=== PATIENT | female | born 1935 | race Caucasian/White ===

== ENCOUNTER → 2018-07-02 | Outpatient (REF) | payer MEDICARE | LOC: M SFHCLERA 17:24 | DX: R10.30 Lower abdominal pain, unspecified (principal) | CPT/HCPCS: 87186 ==

== ENCOUNTER → 2018-11-28 | Outpatient (REF) | payer MEDICARE ==
[~2018-11-28] MED LIST: ACET650T3 PO; ASPI81CH PO; BIMA01SOL OU; CALC600T60 PO; DRIS50003 PO; FOSA70TA PO; LISI10TA2 PO; LISI20TA PO; LOVA20TA2 PO; LUTE10TA PO; RANTIDINE PO; TIMO25OPD OD; VITA1CAP2 PO
== END ==
LOC: M SFHCLERA 17:28
PROVIDERS: ATTEND Physician Assistant
DX: N30.01 Acute cystitis with hematuria (principal)
CPT/HCPCS: 81002; 87088; 87186; G0463

== ENCOUNTER → 2020-01-30 | Outpatient (CLI) | payer MEDICARE ==
[~2020-01-30] MED LIST changes: -ASPI81CH PO; +ASPI81CH49 PO; +BAYE325T12 PO; +DORZ2SOL5 OU; +GABA-1171 PO; +LISI10TA15 PO; -LISI10TA2 PO; -LISI20TA PO; +LISI20TA19 PO; +TIMO0.2525 OD; -TIMO25OPD OD; +VITA-183 PO; -VITA1CAP2 PO; +XALA0.007 OU
== END ==
LOC: M LABSMTC 09:05
PROVIDERS: ATTEND Anesthesiology
DX: Z01.818 Encounter for other preprocedural examination (principal); Z11.59 Encounter for screening for other viral diseases

== ENCOUNTER 2020-02-02 08:53 | Day surgery (SDC) | payer MEDICARE ==
[~2020-02-02] VITALS: Ht 157.5 cm; Wt 47.4 kg
[~2020-02-02 08:53] MED LIST changes: +LR 1,000 ML IV ONE
[2020-02-02] MEDS ORDERED: propofoL 200 MG/20 ML VIAL As Ordered ONE (09:49)
[2020-02-02] MEDS ORDERED: LIDOCAINE 2% 100MG/5ML SDV (FOR ANES.) As Ordered ONE (09:49)
[2020-02-02 12:25] VITALS: BP 168/78
--- NOTE | 2020-02-04 14:08 | RO ---
DATE OF PROCEDURE: 02/02/2020 PREOPERATIVE DIAGNOSIS: Abnormal CT with possible rectal mass. POSTOPERATIVE DIAGNOSIS: Diverticulosis in the sigmoid, proctitis, internal hemorrhoids that were non bleeding, and sigmoid polyp. PROCEDURE: Sigmoidoscopy with sigmoid polypectomy and rectal biopsies. SURGEON: Dr. Olegario Yeboah FIRE INVESTIGATION LIEUTENANT: None. ANESTHESIA: IV sedation. COMPLICATIONS: None. ESTIMATED BLOOD LOSS: Minimal. INDICATION FOR PROCEDURE: The patient is an 84-year-old female with persistent rectal pains who presents for possible rectal mass on CT that was done at [place]. Because of the persistent pain and the rectal thickening on her CT, recommendation was to proceed with sigmoidoscopy. The risks and benefits of the procedure not limited to, but including bleeding, infection, perforation and possibility of missing something were discussed in detail with the patient and her daughter. Informed consent was obtained and the procedure was planned. PROCEDURE: The patient was brought back to operating room eight after sufficient sedation. She was placed in left lateral decubitus position. A time out was done to confirm proper patient and proper procedure. Following that, a rectal exam was done. There were no palpable masses identified on rectal exam. The sigmoidoscope was then passed through the rectum all way up into the sigmoid up to 40 cm. The scope was then slowly retracted back, noting diverticulosis in the sigmoid. At the rectosigmoid junction, there was a small hyperplastic appearing polyp that was removed with cold biopsy forceps. The scope was then retracted back into the rectum. There was inflammation circumferentially in the rectum, but no distinct masses. Two separate biopsies were taken there for cytology. The scope was then retroflexed to evaluate for internal hemorrhoids. There were small internal hemorrhoids that were non bleeding. The scope was then removed, thus ending the procedure. The patient tolerated the procedure well and was sent to the post anesthesia care unit (PACU) in stable condition. I discussed the findings with both the patient and her daughter over the phone. We will plan to order a CT of the abdomen and pelvis with oral and IV contrast to evaluate the rectal mass in more detail.
== END 2020-02-02 12:35 | disposition home or self-care (01) ==
LOC: M SDC 08:53
PROVIDERS: ATTEND Surgery
DX: K63.5 Polyp of colon (principal); K57.32 Diverticulitis of large intestine without perforation or abscess without bleeding; K64.8 Other hemorrhoids; I10 Essential (primary) hypertension; Z79.82 Long term (current) use of aspirin; R19.7 Diarrhea, unspecified; Z88.1 Allergy status to other antibiotic agents; K58.8 Other irritable bowel syndrome; Z79.899 Other long term (current) drug therapy

== ENCOUNTER → 2021-06-08 | Outpatient (REF) | payer MEDICARE ==
[~2021-06-08] MED LIST changes: -LISI20TA19 PO; +LISI20TA35 PO; -LR 1,000 ML IV ONE
[2021-06-08 17:26] LABS: PERCENT SATURATION 23.7 % (13.2-45.0)
== END ==
LOC: M LAB REF 16:55
PROVIDERS: ATTEND Internal Medicine Nephrology
DX: N39.0 Urinary tract infection, site not specified (principal); D50.9 Iron deficiency anemia, unspecified

== ENCOUNTER → 2021-06-21 | Outpatient (CLI) | payer MEDICARE ==
--- NOTE | 2021-06-21 14:01 | REP ---
INDICATION: CKD III. COMPARISON: None. TECHNIQUE: Ultrasound examination of the kidneys and urinary bladder was performed using standard technique. FINDINGS: The right kidney measures 8.6 x 4.3 x 3.1 cm and the left kidney measures 8.5 x 3.7 x 3.3 cm. The renal cortical echogenicity is normal. There are no focal abnormalities. There is no evidence of hydronephrosis. The urinary bladder appears unremarkable. IMPRESSION: Normal ultrasound evaluation of the kidneys and urinary bladder. <Electronically signed by Nikolas Robles > 06/21/21 [id number]
== END ==
LOC: M RAD 13:02
PROVIDERS: ATTEND Internal Medicine Nephrology
DX: N18.32 Chronic kidney disease, stage 3b (principal)

== ENCOUNTER → 2021-08-29 | Outpatient (REF) | payer MEDICARE ==
[~2021-08-29] MED LIST changes: +ALBU8.5H INH; +AMIT10TA7 PO; +AMLO1TAB25 PO; +AMLO2.5T3 PO; +CEFD300CAP PO; +DOXY100T PO; -LISI10TA15 PO; +LISI10TA24 PO; +MI-A80CH PO; +NITR-67 PO; +OMEP-173 PO; +OXYB5TAB10 PO; +RISATAB3 PO; +SUCR1ORA PO
== END ==
LOC: M LAB REF 17:33
PROVIDERS: ATTEND Internal Medicine Nephrology
DX: N39.0 Urinary tract infection, site not specified (principal)

== ENCOUNTER 2021-09-21 07:34 | Inpatient (IN) | payer MEDICARE ==
[~2021-09-21] VITALS: Ht 154.9 cm; Wt 45.0 kg
[~2021-09-21 07:34] MED LIST changes: -ALBU8.5H INH; -AMIT10TA7 PO; -AMLO1TAB25 PO; -AMLO2.5T3 PO; -CEFD300CAP PO; -DOXY100T PO; +LISI10TA15 PO; -LISI10TA24 PO; -MI-A80CH PO; -NITR-67 PO; -OMEP-173 PO; -OXYB5TAB10 PO; -RISATAB3 PO; -SUCR1ORA PO
[2021-09-21] MEDS ORDERED: NS 1,000 ML IV ONE (07:50)
--- NOTE | 2021-09-21 08:16 | REP ---
INDICATION: weakness COMPARISON: None. TECHNIQUE: Portable AP view of the chest FINDINGS: Mediastinum and cardiac silhouette are within normal limits. Lung canela demonstrate chronic appearing interstitial changes. Acute bibasilar infiltrates (left greater than right) with possible small pleural effusions suggested. No pneumothorax. IMPRESSION: Acute basilar opacities and small pleural effusions (left greater than right). <Electronically signed by Fer Salgado > 09/21/21 [id number]
[2021-09-21 08:38] LABS: BASO # 0.1 10^3/uL (0.0-0.2); BASO % 0.2 % (0.0-1.0); HEMATOCRIT 30.8 % (36.0-47.0); HEMOGLOBIN 9.7 g/dl (12.0-15.5); LYMPH # 0.3 10^3/uL (1.5-5.0); LYMPH % 1.1 % (24.0-44.0); MEAN CORPUSCULAR HEMOGLOBIN 29.9 pg (27.0-33.0); MEAN CORPUSCULAR HGB CONC 31.5 g/dl (32.0-36.5); MEAN CORPUSCULAR VOLUME 95.1 fl (80.0-96.0); MONO # 0.6 10^3/uL (0.0-0.8); MONO % 2.5 % (2.0-8.0); NEUTROPHILS % 95.3 % (36.0-66.0); PLATELET COUNT, AUTOMATED 407 10^3/uL (150-450); RED BLOOD COUNT 3.24 10^6/uL (4.00-5.40); WHITE BLOOD COUNT 24.2 10^3/uL (4.0-10.0)
[2021-09-21 08:43] LABS: BILIRUBIN, URINE MANUAL NEGATIVE (NEGATIVE); GLUCOSE, URINE (UA) MANUAL NEGATIVE (NEGATIVE); KETONE, URINE MANUAL NEGATIVE (NEGATIVE); UROBILINOGEN, URINE MANUAL NORMAL (NORMAL)
[2021-09-21 09:04] LABS: ALBUMIN 2.8 GM/DL (3.2-5.2); BILIRUBIN,DIRECT 0.2 MG/DL (0.0-0.2); BILIRUBIN,TOTAL 0.6 MG/DL (0.2-1.0); CREATININE FOR GFR 1.02 MG/DL (0.55-1.30); POTASSIUM SERUM 4.5 MEQ/L (3.5-5.1)
[2021-09-21] MEDS ORDERED: PIPERACILLIN/TAZOBACTAM SOD 3.375 GM in D5W MINI-BAG PLUS 50 ML IV ONE (09:10)
[2021-09-21] MEDS ORDERED: VANCOMYCIN HCL 1,000 MG, VIAL MATE ADAPTER 1 EACH in NS 250 ML IV ONE (09:10)
[2021-09-21] MEDS ORDERED: AMLO2.5T3 PO (09:28)
[2021-09-21] MEDS ORDERED: NITR-67 PO (09:28)
[2021-09-21 09:45] LABS: RSV AMPLIFICATION NEGATIVE (NEGATIVE)
[2021-09-21] MEDS ORDERED: ALBU8.5H INH (09:55)
[2021-09-21] MEDS ORDERED: HOME MED LIST COMPLETE! XX SCH (10:00)
[2021-09-21] MEDS ORDERED: LEVALBUTEROL 1.25 MG/0.5 ML CONCENTRATE NEB INH PRN (10:10)
[2021-09-21] MEDS: LEVALBUTEROL 1.25 MG/0.5 ML CONCENTRATE NEB INH SCH ×3 (12:00→19:48)
[2021-09-21] MEDS: LACTOBACILLUS ACIDOPHILUS CAP (BACID) PO SCH ×3 (12:30→21:09)
[2021-09-21 14:04] LABS: C REACTIVE PROTEIN QUANTITATIV 1.51 MG/DL (0.00-0.30)
--- NOTE | 2021-09-21 14:05 | HPE ---
HISTORY AND PHYSICAL DATE OF ADMISSION: 09/21/2021 CHIEF COMPLAINT: Weakness, back pain, cough. HISTORY OF PRESENT ILLNESS: This is an 86-year-old female recently discharged from [facility] after being treated for community-acquired pneumonia for 4 days and urinary tract infection, discharged home today. While at home patient complained of generalized weakness. Was lowered down in the bathroom by her son without any head trauma. Complained of feeling bad. Patient denies dysuria, urgency, frequency, fever, or chills. She has a cough which is dry. No nausea or vomiting. No shortness of breath. Patient denies any paroxysmal nocturnal dyspnea (PND), orthopnea, lower extremity edema. She has had decrease in appetite. No loss of taste, loss of smell. COVID negative. White count in the emergency room was found to be 24.2, hemoglobin 9.7, hematocrit 30. Lactic acid was normal at 1.4. Chest x-ray 09/21/2021 shows acute basilar opacities, left greater than right, with possible left small pleural effusion. No pneumothorax. Lung canela demonstrate chronic-appearing interstitial changes. Blood cultures are pending. Hospitalist was asked to admit the patient for possible healthcare-associated pneumonia due to recent hospitalization, discharged yesterday from [facility]. Patient had no diarrhea to suspect Clostridium infection. MEDICAL HISTORY: 1. Community-acquired pneumonia. 2. Urinary tract infection. 3. Chronic back pain. 4. Debility. 5. Protein-calorie malnutrition, body mass index (BMI) of 18.7 with cachexia and bitemporal wasting. 6. Chronic kidney disease, stage III. 7. Hypertension. 8. Osteoporosis. 9. Hypercholesterolemia. 10. Diverticulosis. 11. Chronic gastritis. 12. Tubular adenoma. 13. Helicobacter (H) pylori. 14. Cystitis. ALLERGIES: CODEINE and CIPROFLOXACIN. PAST SURGICAL HISTORY: 1. Sigmoidoscopy with sigmoid polypectomy and rectal biopsies. 2. Skin tag resection. SOCIAL HISTORY: Patient lives at home with her son. Never smoked cigarettes. Denies recreational drug use, alcohol use. FAMILY HISTORY: Noncontributory due to advanced age. REVIEW OF SYSTEMS: Per history of present illness (HPI). A 12-point system otherwise negative. PHYSICAL EXAMINATION: Temperature 97.6, pulse 91, sinus, respiratory rate 19, blood pressure 107/50, 96% on room air. GENERAL: Patient is cachectic. Bitemporal wasting. Dry mucous membranes. No jugular venous distention (JVD), thyromegaly, cervical lymphadenopathy. No conversational dyspnea, cyanosis, or pallor. LUNGS: Diminished with fine crepitations and crackles at the bilateral bases. HEART: S1, S2, sinus rhythm. No murmurs, rubs, or gallops. ABDOMEN: Soft, nontender, nondistended. Positive bowel sounds. EXTREMITIES: No pitting edema. MUSCULOSKELETAL: Patient has point tenderness around T11-L3. Motor function 5/5 times four extremities. No paresthesias. Unable to do straight leg test due to severe pain. Patient's gait was not tested. LABORATORY DATA: Imaging study, microbiology, please see the chart. ASSESSMENT AND PLAN: This is an 86-year-old female brought into the emergency room with complaints of weakness one day after discharged from the hospital at [facility] for pneumonia and treated for urinary tract infection (UTI). Found to have leukocytosis with white count 24,000. Hemoglobin of 9.7. Chest x-ray shows bilateral lower lobe changes. Hospitalist was asked to admit the patient for possible healthcare-associated pneumonia, debility, back pain. IMPRESSION: 1. Healthcare-associated pneumonia with leukocytosis. White count 24,000. Check methicillin-resistant Staphylococcus aureus (MRSA) screen. Check sputum culture, urine Legionella, urine streptococcal antigen. Obtain records from [facility]. Nebulizer as needed. Currently on Zosyn and received one dose of vancomycin. Methicillin-resistant Staphylococcus aureus (MRSA). screen was not detected. COVID was negative. 2. Back pain. Check x-ray of the thoracic and lumbar spine. No significant neurological issue. 3. Patient complains of pelvic pain with a history of tubular adenoma and colonoscopy, but previous CT in 2020 shows rectal wall thickening. Correlate with PET scan. 4. Osteoporosis. Risk for recurrent falls. Assisted ambulation. Acute rehabilitation unit (ARU) consult. Physical therapy (PT)/occupational therapy (OT). 5. History of chronic gastritis and Helicobacter (H) pylori on pathology in 2020. Proton pump inhibitor (PPI) as needed. 6. Deep venous thrombosis (DVT) prophylaxis with compression stockings. MTDD
[2021-09-21 14:30] LABS: ERYTHROCYTE SEDIMENTATION RATE 63 mm/hr (0-30)
[2021-09-21 14:57] VITALS: BP 152/85
[2021-09-21] MEDS ORDERED: NS 1,000 ML IV SCH (17:25)
[2021-09-21] MEDS ORDERED: IBUPROFEN 200MG TAB PO ONE (18:00)
[2021-09-21] MEDS ORDERED: PERCOCET 5MG/325MG TAB PO ONE (18:00)
[2021-09-21] MEDS ORDERED: VANCOMYCIN HCL 1,000 MG, VIAL MATE ADAPTER 1 EACH in NS 250 ML IV SCH (18:00)
[2021-09-21] MEDS: PIPERACILLIN/TAZOBACTAM SOD 3.375 GM in D5W MINI-BAG PLUS 50 ML IV SCH ×2 (18:24→23:09)
[2021-09-21] MEDS: LIDOCAINE 5% (LIDODERM) PATCH TD SCH (18:27)
--- NOTE | 2021-09-21 18:28 | REP ---
INDICATION: back pain COMPARISON: None. TECHNIQUE: AP, lateral, and swimmers views. FINDINGS: Age-related osteopenia and moderate multilevel degenerative changes include endplate sclerosis, osteophytosis and disc space narrowing. Alignment and kyphosis is well maintained. No obvious acute fracture/compression injury or subluxation. Lateral view again suggests bibasilar opacities suggesting atelectasis/infiltrates and small effusions. IMPRESSION: Age-related osteopenia and degenerative changes. No acute fracture/compression injury. Bibasilar opacities and small pleural effusions. <Electronically signed by Fer Salgado > 09/21/21 1140
--- NOTE | 2021-09-21 18:29 | REP ---
INDICATION: back pain COMPARISON: None. TECHNIQUE: AP, lateral, bilateral oblique, and coned-down views of the lumbar spine. FINDINGS: Chronic age-related degenerative changes and levoconvex scoliosis. Findings clues endplate sclerosis, osteophytosis, disc space narrowing and facet hypertrophy. Alignment and lordosis maintained. No acute fracture/compression injury or subluxation. IMPRESSION: Multilevel degenerative spondylosis. No acute fracture/compression injury or subluxation. <Electronically signed by Fer Salgado > 09/21/21 [id number]
--- NOTE | 2021-09-21 18:30 | REP ---
INDICATION: fall hip pain. COMPARISON: None. TECHNIQUE: Frontal view of the pelvis with neutral and frog-lateral views of the right and left hip. FINDINGS: Age-related osteopenia and relatively mild/early moderate degenerative changes to the bilateral hips includes joint space narrowing, increased sclerosis to the acetabular roof, and mild marginal spurring. No evidence for acute fracture or dislocation. IMPRESSION: Generalized age-related changes. No acute fracture or dislocation. <Electronically signed by Fer Salgado > 09/21/21 [id number]
[2021-09-21] MEDS: ACETAMINOPHEN 500 MG TAB PO SCH ×2 (19:58→21:00)
[2021-09-21 22:00] VITALS: BP 129/54
[2021-09-22] MEDS: **NOTE PATIENT COMMENT** MISC XX SCH (05:01)
[2021-09-22] MEDS: PIPERACILLIN/TAZOBACTAM SOD 3.375 GM in D5W MINI-BAG PLUS 50 ML IV SCH ×4 (05:01→23:10)
[2021-09-22 06:00] VITALS: BP 131/63
[2021-09-22 06:18] LABS: BASO % 0.3 % (0.0-1.0); EOS # 0.3 10^3/uL (0.0-0.5); EOS % 2.6 % (0.0-3.0); HEMATOCRIT 25.9 % (36.0-47.0); HEMOGLOBIN 8.1 g/dl (12.0-15.5); LYMPH % 10.1 % (24.0-44.0); MEAN CORPUSCULAR HEMOGLOBIN 29.5 pg (27.0-33.0); MEAN CORPUSCULAR HGB CONC 31.3 g/dl (32.0-36.5); MEAN CORPUSCULAR VOLUME 94.2 fl (80.0-96.0); MONO # 0.7 10^3/uL (0.0-0.8); MONO % 7.1 % (2.0-8.0); NEUTROPHILS # 7.7 10^3/uL (1.5-8.5); NEUTROPHILS % 79.5 % (36.0-66.0); PLATELET COUNT, AUTOMATED 360 10^3/uL (150-450); RED BLOOD COUNT 2.75 10^6/uL (4.00-5.40); WHITE BLOOD COUNT 9.7 10^3/uL (4.0-10.0)
[2021-09-22 06:46] LABS: CALCIUM LEVEL 7.9 MG/DL (8.8-10.2); CREATININE FOR GFR 1.05 MG/DL (0.55-1.30); GLOMERULAR FILTRATION RATE 53.2 (>32); POTASSIUM SERUM 4.5 MEQ/L (3.5-5.1)
[2021-09-22] MEDS: LEVALBUTEROL 1.25 MG/0.5 ML CONCENTRATE NEB INH SCH ×4 (07:44→19:41)
[2021-09-22] MEDS: LACTOBACILLUS ACIDOPHILUS CAP (BACID) PO SCH ×4 (08:23→21:18)
[2021-09-22] MEDS: IBUPROFEN 200MG TAB PO SCH ×3 (08:23→18:23)
[2021-09-22] MEDS: ACETAMINOPHEN 500 MG TAB PO SCH ×3 (08:24→21:19)
--- NOTE | 2021-09-22 08:26 | ECGEPIP ---
[facility] - ED Test Date: 2021-09-21 Pat Name: KRISTINA WYATT Department: Room: - Gender: Female Materials Mgmt Tech: NIKKI : 1935 Requested By: GIULIANA Mejia Order Number: [id number] Reading MD: Torres Pavon Measurements Intervals [place] Rate: 92 P: 67 [place]: 172 QRS: -17 QRSD: 86 T: 40 QT: 388 QTc: 479 Interpretive Statements Normal sinus rhythm INCOMPLETE RIGHT BUNDLE BRANCH BLOCK Anterior infarct , age undetermined NO PRIORS FOR COMPARISON Electronically Signed on 09-22-2021 8:26:01 EST by Torres Pavon
--- NOTE | 2021-09-22 12:48 | IPNPDOC ---
Date Seen The patient was seen on 09/22/21. Progress Note Subjective: Patient denies any cough fever chills nausea vomiting abdominal pain diarrhea Overnight. Shortness of breath is improved. She denies any headaches Chest pain pressure tightness Objective: Physical exam Vital signs: See below GENERAL: Sitting at 90 degrees eating her breakfast in bed No distress cyanosis or pallor Speaks in full sentences patient is cachectic. Bitemporal wasting. Dry mucous membranes. No jugular venous distention (JVD), thyromegaly, cervical lymphadenopathy. LUNGS: Diminished with fine crepitations and crackles at the bilateral bases. HEART: S1, S2, sinus rhythm. No murmurs, rubs, or gallops. ABDOMEN: Soft, nontender, nondistended. Positive bowel sounds. EXTREMITIES: No pitting edema. MUSCULOSKELETAL: Patient has point tenderness around T11-L3. Motor function 5/5 times four extremities. No paresthesias. Unable to do straight leg test due to severe pain. Patient's gait was not tested. LABORATORY DATA: Imaging study, microbiology, please see the chart. ASSESSMENT AND PLAN: This is an 86-year-old female brought into the emergency room with complaints of weakness one day after discharged from the hospital at [facility] for pneumonia and treated for urinary tract infection (UTI). Found to have leukocytosis with white count 24,000. Hemoglobin of 9.7. Chest x-ray shows bilateral lower lobe changes. Hospitalist was asked to admit the patient for possible healthcare-associated pneumonia, debility, back pain. IMPRESSION: 1. Healthcare-associated pneumonia with leukocytosis. Empirically given vancomycin yesterday but MRSA screen was negative. Therefore vancomycin has been discontinued Patient did well with Zosyn with decreasing white count, and clinically improved with less shortness of breath 2. Back pain. Check x-ray of the thoracic and lumbar spine negative for fracture or dislocation. Symptomatic relief with Pain medications and Lidoderm patches. No neurological deficits. 3. Osteoporosis. Risk for recurrent falls. Assisted ambulation. Acute rehabilitation unit (ARU) consult. Physical therapy (PT)/occupational therapy (OT). 4. History of chronic gastritis and Helicobacter (H) pylori on pathology in 2019. Proton pump inhibitor (PPI) as needed. Deep venous thrombosis (DVT) prophylaxis with compression stockings. VS, I&O, 24H, Fishbone Vital Signs/I&O Vital Signs Date Time Temp Pulse Resp B/P (MAP) Pulse Ox O2 Delivery O2 Flow Rate FiO2 09/22/21 06:00 98.7 80 19 131/63 (85) 99 Room Air I&O- Last 24 Hours up to 6 AM 09/22/21 06:00 Intake Total 2860 ml Output Total 5 ml Balance 2855 ml Laboratory Data 24H LABS Laboratory Tests 2 09/22/21 05:41: Immature Granulocyte % (Auto) 0.4, Neutrophils (%) (Auto) 79.5H, Lymphocytes (%) (Auto) 10.1L, Monocytes (%) (Auto) 7.1, Eosinophils (%) (Auto) 2.6, Basophils (%) (Auto) 0.3, Neutrophils # (Auto) 7.7, Lymphocytes # (Auto) 1.0L, Monocytes # (Auto) 0.7, Eosinophils # (Auto) 0.3, Basophils # (Auto) 0.0, Nucleated Red Blood Cells % (auto) 0.0, Anion Gap 5L, Glomerular Filtration Rate 53.2, Calcium Level 7.9L, LP-Thr-U-Type Natriuretic Peptide 1772H CBC/BMP Laboratory Tests 09/22/21 05:41 Microbiology Microbiology 09/21/21 Blood Culture - Preliminary, Resulted No growth after 24 hours . All specim... 09/21/21 Blood Culture - Preliminary, Resulted No growth after 24 hours . All specim... HAILY BAKER MD Sep 22, 2021 12:48
[2021-09-22 14:00] VITALS: BP 138/68
[2021-09-22] MEDS: LIDOCAINE 5% (LIDODERM) PATCH TD SCH (18:23)
[2021-09-22 22:00] VITALS: BP 147/67
[2021-09-23] MEDS: PIPERACILLIN/TAZOBACTAM SOD 3.375 GM in D5W MINI-BAG PLUS 50 ML IV SCH (05:01)
[2021-09-23 06:00] VITALS: BP 153/83
[2021-09-23] MEDS: **NOTE PATIENT COMMENT** MISC XX SCH (06:00)
[2021-09-23 06:25] LABS: BASO % 0.5 % (0.0-1.0); EOS # 0.3 10^3/uL (0.0-0.5); EOS % 3.7 % (0.0-3.0); HEMATOCRIT 26.1 % (36.0-47.0); HEMOGLOBIN 8.2 g/dl (12.0-15.5); LYMPH # 1.3 10^3/uL (1.5-5.0); LYMPH % 17.4 % (24.0-44.0); MEAN CORPUSCULAR HEMOGLOBIN 29.7 pg (27.0-33.0); MEAN CORPUSCULAR HGB CONC 31.4 g/dl (32.0-36.5); MEAN CORPUSCULAR VOLUME 94.6 fl (80.0-96.0); MONO # 0.7 10^3/uL (0.0-0.8); MONO % 9.9 % (2.0-8.0); NEUTROPHILS # 5.1 10^3/uL (1.5-8.5); NEUTROPHILS % 68.2 % (36.0-66.0); PLATELET COUNT, AUTOMATED 386 10^3/uL (150-450); RED BLOOD COUNT 2.76 10^6/uL (4.00-5.40); WHITE BLOOD COUNT 7.5 10^3/uL (4.0-10.0)
[2021-09-23 06:43] LABS: CALCIUM LEVEL 8.1 MG/DL (8.8-10.2); CREATININE FOR GFR 1.01 MG/DL (0.55-1.30); GLOMERULAR FILTRATION RATE 55.6 (>32); POTASSIUM SERUM 4.3 MEQ/L (3.5-5.1)
[2021-09-23] MEDS: LEVALBUTEROL 1.25 MG/0.5 ML CONCENTRATE NEB INH SCH ×4 (07:05→20:32)
[2021-09-23] MEDS: IBUPROFEN 200MG TAB PO SCH ×3 (08:55→17:51)
[2021-09-23] MEDS: ACETAMINOPHEN 500 MG TAB PO SCH ×3 (08:56→20:29)
[2021-09-23] MEDS: LACTOBACILLUS ACIDOPHILUS CAP (BACID) PO SCH ×4 (08:56→20:29)
[2021-09-23] MEDS ORDERED: FUROSEMIDE 40MG/4ML VIAL (J1940) IV ONE (09:00)
--- NOTE | 2021-09-23 10:46 | IPNPDOC ---
Date Seen The patient was seen on 09/23/21. Progress Note Subjective: c/o 3 large loose bm. decreased appetite. no f/c sob unchanged dry cough. no n/v c/o abd cramps and weakness. Objective: Physical exam Vital signs: See below GENERAL:frail appearing. Speaks in full sentences patient is cachectic. Bitemporal wasting. Dry mucous membranes. No jugular venous distention (JVD), thyromegaly, cervical lymphadenopathy. LUNGS: Diminished with fine crepitations and crackles at the bilateral bases. HEART: S1, S2, sinus rhythm. No murmurs, rubs, or gallops. ABDOMEN: Soft, nontender, nondistended. Positive bowel sounds. EXTREMITIES: No pitting edema. LABORATORY DATA: Imaging study, microbiology, please see the chart. ASSESSMENT AND PLAN: This is an 86-year-old female brought into the emergency room with complaints of weakness one day after discharged from the hospital at [facility] for pneumonia and treated for urinary tract infection (UTI). Found to have leukocytosis with white count 24,000. Hemoglobin of 9.7. Chest x-ray shows bilateral lower lobe changes. Hospitalist was asked to admit the patient for possible healthcare-associated pneumonia, debility, back pain. IMPRESSION: 1. Healthcare-associated pneumonia with leukocytosis. s/p vanco zosyn, but developed diarrhea.bacid w meals and qhs deescalate abx to doxy and cefdinir and monitor crp esr procalcitonin 2. Back pain. x-ray of the thoracic and lumbar spine negative for fracture or dislocation. Symptomatic relief with Pain medications and Lidoderm patches. No neurological deficits. 3. Osteoporosis. Risk for recurrent falls. Assisted ambulation. Acute rehabilitation unit (ARU) consult. Physical therapy (PT)/occupational therapy (OT). 4. History of chronic gastritis and Helicobacter (H) pylori on pathology in 2020. Proton pump inhibitor (PPI) as needed. 5. Diarrhea high risk for cdiff inlight of recent hospital discharge and re-admission. could still be antibioitic induced but will give vanco 250 mg q6hrs dc vanco if negative for cdiff. 6. elevated bnp clinically dry. no lasix due to ongoing diarrhea and risk of acute kidney injury. Deep venous thrombosis (DVT) prophylaxis with compression stockings. VS, I&O, 24H, Fishbone Vital Signs/I&O Vital Signs Date Time Temp Pulse Resp B/P (MAP) Pulse Ox O2 Delivery O2 Flow Rate FiO2 09/23/21 06:00 97.1 90 18 153/83 (106) 97 Room Air I&O- Last 24 Hours up to 6 AM 09/23/21 06:00 Intake Total 1820 ml Output Total 1400 ml Balance 420 ml Laboratory Data 24H LABS Laboratory Tests 2 09/23/21 05:39: Immature Granulocyte % (Auto) 0.3, Neutrophils (%) (Auto) 68.2H, Lymphocytes (%) (Auto) 17.4L, Monocytes (%) (Auto) 9.9H, Eosinophils (%) (Auto) 3.7H, Basophils (%) (Auto) 0.5, Neutrophils # (Auto) 5.1, Lymphocytes # (Auto) 1.3L, Monocytes # (Auto) 0.7, Eosinophils # (Auto) 0.3, Basophils # (Auto) 0.0, Nucleated Red Blood Cells % (auto) 0.0, Anion Gap 7L, Glomerular Filtration Rate 55.6, Calcium Level 8.1L CBC/BMP Laboratory Tests 09/23/21 05:39 Microbiology Microbiology 09/22/21 Gram Stain - Final, Complete 09/22/21 Sputum Culture - Final, Complete 09/21/21 Blood Culture - Preliminary, Resulted No Growth after 48 hours. All Specime... 09/21/21 Blood Culture - Preliminary, Resulted No Growth after 48 hours. All Specime... HAILY BAKER MD Sep 23, 2021 10:46
[2021-09-23] MEDS: CEFDINIR 300 MG CAP (OMNICEF) PO SCH (11:35)
[2021-09-23 14:00] VITALS: BP 158/98
[2021-09-23] MEDS ORDERED: NS 1,000 ML IV SCH (17:00)
[2021-09-23] MEDS: LIDOCAINE 5% (LIDODERM) PATCH TD SCH (17:52)
[2021-09-23] MEDS ORDERED: VANCOMYCIN ORAL SOL 250MG/5ML ORAL SYRINGE PO SCH (18:00)
[2021-09-23] MEDS: DOXYCYCLINE HYCLATE 100MG TABLET PO SCH (20:29)
[2021-09-23 22:00] VITALS: BP 159/96
[2021-09-24 06:00] VITALS: BP 158/98
[2021-09-24] MEDS: **NOTE PATIENT COMMENT** MISC XX SCH (06:42)
[2021-09-24 06:43] LABS: BASO # 0.1 10^3/uL (0.0-0.2); BASO % 0.6 % (0.0-1.0); EOS # 0.3 10^3/uL (0.0-0.5); EOS % 3.7 % (0.0-3.0); HEMATOCRIT 31.1 % (36.0-47.0); HEMOGLOBIN 9.7 g/dl (12.0-15.5); LYMPH # 1.6 10^3/uL (1.5-5.0); LYMPH % 19.4 % (24.0-44.0); MEAN CORPUSCULAR HEMOGLOBIN 29.4 pg (27.0-33.0); MEAN CORPUSCULAR HGB CONC 31.2 g/dl (32.0-36.5); MEAN CORPUSCULAR VOLUME 94.2 fl (80.0-96.0); MONO # 0.7 10^3/uL (0.0-0.8); MONO % 7.9 % (2.0-8.0); NEUTROPHILS # 5.6 10^3/uL (1.5-8.5); NEUTROPHILS % 67.9 % (36.0-66.0); PLATELET COUNT, AUTOMATED 457 10^3/uL (150-450); WHITE BLOOD COUNT 8.2 10^3/uL (4.0-10.0)
[2021-09-24 07:14] LABS: BLOOD UREA NITROGEN 9 MG/DL (7-18); CALCIUM LEVEL 8.8 MG/DL (8.8-10.2); CARBON DIOXIDE LEVEL 25 MEQ/L (21-32); CHLORIDE LEVEL 108 MEQ/L (98-107); CREATININE FOR GFR 0.72 MG/DL (0.55-1.30); GLOMERULAR FILTRATION RATE > 60.0 (>32); GLUCOSE, FASTING 87 MG/DL (70-100); POTASSIUM SERUM 4.4 MEQ/L (3.5-5.1); SODIUM LEVEL 138 MEQ/L (136-145)
[2021-09-24] MEDS: LEVALBUTEROL 1.25 MG/0.5 ML CONCENTRATE NEB INH SCH ×4 (08:00→19:43)
[2021-09-24] MEDS ORDERED: PHENAZOPYRIDINE 100 MG TAB PO SCH (09:00)
[2021-09-24] MEDS: CEFDINIR 300 MG CAP (OMNICEF) PO SCH (09:31)
[2021-09-24] MEDS: LACTOBACILLUS ACIDOPHILUS CAP (BACID) PO SCH ×4 (09:32→20:41)
[2021-09-24] MEDS: ACETAMINOPHEN 500 MG TAB PO SCH ×3 (09:32→20:41)
[2021-09-24] MEDS: DOXYCYCLINE HYCLATE 100MG TABLET PO SCH ×2 (09:32→20:41)
[2021-09-24] MEDS: IBUPROFEN 200MG TAB PO SCH ×3 (09:32→17:00)
--- NOTE | 2021-09-24 10:29 | IPN ---
PROGRESS NOTE DATE: 09/24/2021 SUBJECTIVE: Patient complains of urinary urgency. Urine output is about 200 mL per 300 mL this morning, since midnight was 975 overnight. She complains of one loose bowel movement this morning but no sample was available at the bedside. There is no fever or chills, denies any cough or shortness of breath, eating well at the bedside, no abdominal pain. PHYSICAL EXAM: Vitals: Temperature 98, pulse 93, respiratory rate 19, blood pressure 158/98, 98% on room air. General: Awake, alert and oriented to person, place and time, answering questions appropriately. Lungs: Diminished. Fine crackles at bilateral bases. Heart: S1, S2, sinus rhythm. Abdomen: Soft, nontender, nondistended. Positive bowel sounds. Extremities: No clubbing, cyanosis or pitting edema. Laboratory data, imaging study, microbiology: Please see the chart. ASSESSMENT AND PLAN: 86-year-old female was recently discharged from [facility] after being treated for pneumonia for four days, lives at home, presents with weakness, unable to get up, found to have leukocytosis, white count 24,000 and anemic. Patient was admitted for suspect healthcare-associated pneumonia, debility and [id number] back pain. IMPRESSION: 1. Suspected healthcare-associated pneumonia with leukocytosis. Patient was placed on vancomycin, Zosyn but developed severe diarrhea two times yesterday. She is continued on Bacid with meals and q.h.s. She deescalated due to antibiotic induced diarrhea, currently on doxy and cefdinir. We are monitoring CRP, sed rate and procalcitonin. 2. Diarrhea. Most likely antibiotic induced. Patient had one more loose bowel movement today. GI panel to be obtained if three or more diarrhea episodes. 3. Back pain. X-rays were negative for fractures. The patient has been given as needed Tylenol and ibuprofen, Lidoderm patches, no neurological deficits. 4. Osteoporosis with history of recurrent falls, currently with severe debility. PT/OT consulted. 5. History of chronic gastritis and H. pylori on pathology in 2019, on PPI as needed. 6. Elevated BMP. She looks dry. Patient was not given any Lasix. We will need to monitor clinically everyday.
[2021-09-24 14:00] VITALS: BP 122/68
[2021-09-24] MEDS: LIDOCAINE 5% (LIDODERM) PATCH TD SCH (17:02)
[2021-09-24 20:42] VITALS: BP 136/81
[2021-09-25] MEDS: **NOTE PATIENT COMMENT** MISC XX SCH (06:00)
[2021-09-25 06:16] LABS: BASO # 0.1 10^3/uL (0.0-0.2); BASO % 1.2 % (0.0-1.0); EOS # 0.2 10^3/uL (0.0-0.5); EOS % 2.8 % (0.0-3.0); HEMOGLOBIN 8.8 g/dl (12.0-15.5); LYMPH # 1.6 10^3/uL (1.5-5.0); MEAN CORPUSCULAR HEMOGLOBIN 29.3 pg (27.0-33.0); MEAN CORPUSCULAR HGB CONC 31.4 g/dl (32.0-36.5); MEAN CORPUSCULAR VOLUME 93.3 fl (80.0-96.0); MONO # 0.5 10^3/uL (0.0-0.8); MONO % 8.6 % (2.0-8.0); NEUTROPHILS # 3.7 10^3/uL (1.5-8.5); NEUTROPHILS % 60.9 % (36.0-66.0); PLATELET COUNT, AUTOMATED 417 10^3/uL (150-450); WHITE BLOOD COUNT 6.1 10^3/uL (4.0-10.0)
[2021-09-25 06:45] LABS: BLOOD UREA NITROGEN 10 MG/DL (7-18); CALCIUM LEVEL 8.9 MG/DL (8.8-10.2); CARBON DIOXIDE LEVEL 25 MEQ/L (21-32); CHLORIDE LEVEL 108 MEQ/L (98-107); GLOMERULAR FILTRATION RATE > 60.0 (>32); GLUCOSE, FASTING 83 MG/DL (70-100); POTASSIUM SERUM 4.1 MEQ/L (3.5-5.1); SODIUM LEVEL 138 MEQ/L (136-145)
[2021-09-25 07:09] VITALS: BP 156/72
[2021-09-25] MEDS: LEVALBUTEROL 1.25 MG/0.5 ML CONCENTRATE NEB INH SCH ×4 (07:17→20:00)
--- NOTE | 2021-09-25 09:04 | REP ---
INDICATION: sob r/o chf COMPARISON: 09/21/2021 TECHNIQUE: PA and lateral. FINDINGS: Mediastinum and cardiac silhouette are within normal limits. Calcified lymph nodes and calcified granuloma at the right base again noted. Lung canela demonstrate chronic changes. Subtle residual opacity at the left lung base is considerably improved from previous left lower lobe infiltrate. No evidence for CHF/pulmonary vascular congestion. No pneumothorax. IMPRESSION: Subtle opacity at the left base may represent chronic change versus small residual airspace disease, but is considerably improved when compared with 09/21/2021. No evidence for CHF. <Electronically signed by Fer Salgado > 09/25/21 0900
[2021-09-25 09:07] LABS: NT-PRO BNP 2196 PG/ML (<450)
[2021-09-25] MEDS: LACTOBACILLUS ACIDOPHILUS CAP (BACID) PO SCH ×5 (09:12→20:50)
[2021-09-25] MEDS: DOXYCYCLINE HYCLATE 100MG TABLET PO SCH ×2 (09:15→20:50)
[2021-09-25] MEDS: CEFDINIR 300 MG CAP (OMNICEF) PO SCH (09:15)
[2021-09-25] MEDS: ACETAMINOPHEN 500 MG TAB PO SCH ×3 (09:15→20:51)
[2021-09-25 09:16] VITALS: BP 141/76
[2021-09-25] MEDS: IBUPROFEN 200MG TAB PO SCH ×2 (09:16→12:07)
--- NOTE | 2021-09-25 10:55 | IPN ---
PROGRESS NOTE DATE: 09/21/2021 SUBJECTIVE: Patient denies any diarrhea, complains of generalized weakness and persistent urinary urgency. Patient had no fever or chills overnight; no abdominal pain, nausea, flank pain or chills. Denies any cough, slight short of breath, eating without distress. OBJECTIVE: Vital signs: Temperature 97.9, pulse 90, respiratory rate 19, blood pressure 156/72, 98% on room air. General: Awake, alert, oriented to herself, answering questions appropriately in no distress. HEENT: Dry mucous membranes. Neck: Patient has no JVD, thyromegaly. Lungs: Diminished with fine crackles bilaterally. Heart: S1 and S2 sinus rhythm. Abdomen: Soft, nontender, nondistended, no CVA tenderness. Extremities: Some resting tremors of bilateral upper extremities. No cyanosis, clubbing or pitting edema. LABORATORY DATA/IMAGING STUDIES/MICROBIOLOGY: Have been reviewed, notable for hemoglobin of 8.8, hematocrit of 28 with no signs of GI bleed. ASSESSMENT: This is an 86-year-old female admitted due to sepsis with white count of 24,000, generalized weakness and anemia due to recent admission to [facility] being treated for pneumonia and UTI for 4 days and discharged home. Patient was admitted with suspected health care associated pneumonia, but developed diarrhea most likely antibiotic induced. Patient has been transitioned to cefdinir and doxycycline for pneumonia without worsening white count. She appears to be stable without fever and normal white blood cell count. IMPRESSIONS AND PLAN: 1. Bilateral multifocal pneumonia with leukocytosis 24,000 initially thought to be a health care associated pneumonia and treated with vanco and Zosyn, but developed severe diarrhea: Deescalated down to doxycycline and cefdinir. Still clinically stable without worsening respiratory distress, leukocytosis, worsening shortness of breath or cough. She currently has oropharyngeal contamination on sputum culture. Blood cultures are negative. We will continue for community acquired pneumonia with doxy and cefdinir. MRSA screen was negative. We will consider changing to Zosyn if patient develops of fever, worsening respiratory distress or leukocytosis. 2. Antibiotic induced diarrhea: Patient has not had any loose bowel movements. GI panel could not be obtained. She was at high risk for C. diff colitis due to recent admission to [facility] for 4 days and persistent antibiotic use. Currently she has had no diarrhea. 3. Chronic back pain due to osteoarthritis: On Tylenol and ibuprofen. Monitor patient's renal function because she would be at risk for acute kidney injury. Lidoderm patch. She currently has no neurological deficits. 4. Osteoporosis with history of recurrent falls and severe debility: PT/OT, ARU Consulted. 5. History of chronic gastritis and H. pylori on pathology in 2019: Ibuprofen to be take only with meals because she is at increased risk of GI bleed. Empirically start on Carafate and PPI despite risk of C. diff with PPI. 6. Anemia most likely hemodilutional: Patient is not exhibiting any upper or lower GI bleeding or hematuria; however, due to history of gastritis and H. pylori and continued use of ibuprofen for her osteoarthritis despite ibuprofen being taken with meals she will be empirically started on Carafate and Prilosec. 7. Protein calorie malnutrition, BMI of 18.7/underweight: Substance Abuse Technician consult, Ensure three times a day with meals. MTDD
[2021-09-25] MEDS: SUCRALFATE SUSP 1GM/10ML UD PO SCH ×3 (12:08→20:50)
[2021-09-25] MEDS ORDERED: PROMETHAZINE INJ 25 MG/ML VIAL (J2550) IV PRN (13:55)
[2021-09-25] MEDS ORDERED: PROMETHAZINE INJ 25 MG/ML VIAL (J2550) IV ONE ×2 (13:55→18:25)
[2021-09-25 14:00] VITALS: BP 143/75
[2021-09-25 17:07] LABS: BODY FLUID CULTURE Not indicated. (.); LEGIONELLA ANTIGEN URINE Negative (Negative); ORGANISM ID Not indicated. (.); SPECIMEN SOURCE Urine (.); URINE STREP PNEUMONIAE ANTIGEN Negative (Negative)
[2021-09-25] MEDS: LIDOCAINE 5% (LIDODERM) PATCH TD SCH (18:10)
--- NOTE | 2021-09-25 18:46 | REP ---
INDICATION: intractable n/v abd pain. COMPARISON: None. FINDINGS: KUB shows the intestinal gas pattern to be nonspecific. The organ silhouettes insofar as delineated are unremarkable. There is no evidence of free intraperitoneal air. There are a few gas-filled nondilated small bowel loops. Surgical clips are seen in the right upper quadrant from previous cholecystectomy. IMPRESSION: Nonspecific. <Electronically signed by Justin Mobley > 09/25/21 [id number]
[2021-09-25 19:31] LABS: ALBUMIN 2.9 GM/DL (3.2-5.2); ALT/SGPT 18 U/L (12-78); AMYLASE 65 U/L (25-115); BILIRUBIN,TOTAL 0.4 MG/DL (0.2-1.0); BLOOD UREA NITROGEN 11 MG/DL (7-18); C REACTIVE PROTEIN QUANTITATIV 0.83 MG/DL (0.00-0.30); CALCIUM LEVEL 9.4 MG/DL (8.8-10.2); CARBON DIOXIDE LEVEL 25 MEQ/L (21-32); CHLORIDE LEVEL 108 MEQ/L (98-107); CREATININE FOR GFR 0.87 MG/DL (0.55-1.30); GLOMERULAR FILTRATION RATE > 60.0 (>32); GLUCOSE, FASTING 90 MG/DL (70-100); LIPASE 173 U/L (73-393); POTASSIUM SERUM 3.9 MEQ/L (3.5-5.1); SODIUM LEVEL 138 MEQ/L (136-145); TOTAL PROTEIN 7.4 GM/DL (6.4-8.2)
[2021-09-25 20:00] VITALS: BP 169/78
[2021-09-25] MEDS ORDERED: OMEPRAZOLE 20 MG CAP PO SCH (21:00)
[2021-09-26] MEDS: **NOTE PATIENT COMMENT** MISC XX SCH (05:24)
[2021-09-26 06:00] VITALS: BP 128/70
[2021-09-26 06:21] LABS: BASO # 0.1 10^3/uL (0.0-0.2); BASO % 0.9 % (0.0-1.0); EOS # 0.2 10^3/uL (0.0-0.5); EOS % 3.2 % (0.0-3.0); HEMATOCRIT 27.6 % (36.0-47.0); HEMOGLOBIN 8.8 g/dl (12.0-15.5); LYMPH # 1.9 10^3/uL (1.5-5.0); LYMPH % 29.2 % (24.0-44.0); MEAN CORPUSCULAR HEMOGLOBIN 29.8 pg (27.0-33.0); MEAN CORPUSCULAR HGB CONC 31.9 g/dl (32.0-36.5); MEAN CORPUSCULAR VOLUME 93.6 fl (80.0-96.0); MONO # 0.7 10^3/uL (0.0-0.8); MONO % 10.3 % (2.0-8.0); NEUTROPHILS # 3.6 10^3/uL (1.5-8.5); NEUTROPHILS % 56.1 % (36.0-66.0); PLATELET COUNT, AUTOMATED 390 10^3/uL (150-450); RED BLOOD COUNT 2.95 10^6/uL (4.00-5.40); WHITE BLOOD COUNT 6.5 10^3/uL (4.0-10.0)
[2021-09-26 06:42] LABS: BLOOD UREA NITROGEN 12 MG/DL (7-18); CALCIUM LEVEL 8.8 MG/DL (8.8-10.2); CARBON DIOXIDE LEVEL 25 MEQ/L (21-32); CHLORIDE LEVEL 111 MEQ/L (98-107); CREATININE FOR GFR 0.89 MG/DL (0.55-1.30); GLOMERULAR FILTRATION RATE > 60.0 (>32); GLUCOSE, FASTING 72 MG/DL (70-100); SODIUM LEVEL 140 MEQ/L (136-145)
[2021-09-26] MEDS: LEVALBUTEROL 1.25 MG/0.5 ML CONCENTRATE NEB INH SCH ×2 (08:00→09:00)
[2021-09-26 08:04] LABS: FERRITIN 73 NG/ML (8-252); IRON (FE) 65 UG/DL (50-170); PERCENT SATURATION 29.1 % (13.2-45.0); TOTAL IRON BINDING CAPACITY 223 UG/DL (250-450)
[2021-09-26 08:12] LABS: FOLATE 12.5 NG/ML; VITAMIN B12 LEVEL 1567 PG/ML
[2021-09-26] MEDS: SUCRALFATE SUSP 1GM/10ML UD PO SCH ×2 (08:50→13:03)
[2021-09-26] MEDS: LACTOBACILLUS ACIDOPHILUS CAP (BACID) PO SCH ×2 (08:50→12:30)
[2021-09-26] MEDS: CEFDINIR 300 MG CAP (OMNICEF) PO SCH (08:50)
[2021-09-26] MEDS: ACETAMINOPHEN 500 MG TAB PO SCH (08:51)
[2021-09-26] MEDS: DOXYCYCLINE HYCLATE 100MG TABLET PO SCH (08:51)
[2021-09-26] MEDS ORDERED: DOXY100T PO (09:43)
[2021-09-26] MEDS ORDERED: OMEP-218 PO (09:43)
[2021-09-26] MEDS ORDERED: CEFD300CAP PO (09:43)
[2021-09-26] MEDS ORDERED: AMLO1TAB25 PO (09:43)
[2021-09-26] MEDS ORDERED: SUCR1ORA PO (09:43)
[2021-09-26] MEDS ORDERED: RISATAB3 PO (09:43)
--- NOTE | 2021-09-26 09:59 | DS.PDOC ---
Discharge Summary General Date of Admission Sep 21, 2021 at 10:03 Date of Discharge 09/26/2021 Discharge Summary PROCEDURES PERFORMED DURING STAY: [None]. ADMITTING DIAGNOSES / DISCHARGE DIAGNOSES: Cough - likely 2/2 bilateral multifocal PNA Diarrhea - likely 2/2 antibiotics Chronic back pain / Osteoarthritis Osteoporosis / Recurrent falls Gastritis / H. Pylori (Pathology 2020) HTN Anemia Protein calorie malnutrition DVT prophylaxis COMPLICATIONS/CHIEF COMPLAINT: Weakness HISTORY OF PRESENT ILLNESS: Patient is an 86-year-old female with a PMHx of HTN, DLP, CKD3, Protein calorie malnutrition (BMI 18.7), Osteoporosis, Gastritis who presented to the ER on 09/21 with weakness and cough. Patient was recently discharged from [facility] after being treated for CAP and UTI for 4 days. While at home. Patient complained of generalized weakness and was lowered down to the bathroom floor by her son. Patient was admission to hospitalist service for further evaluation and treatment. Patient was seen and examined the bedside. Currently, she denies any nausea, vomiting, chest pain, SOB, palpitations, abdominal pain or diarrhea. Patient still reports generalized weakness and fatigue. However, she continues to work with physical therapy. HOSPITAL COURSE: Cough - likely 2/2 bilateral multifocal PNA - Currently patient denies any shortness of breath or cough - Patient remains hemodynamically stable and afebrile - s/p Leukocytosis - MRSA negative / Legionella antigen negative / Strep pneumonia antigen negative - Blood cultures 09/21: No growth at 3 days - c/w Cefdinir / Doxycycline; s/p Vancomycin and Zosyn (Antibiotic day #6) Diarrhea - likely 2/2 antibiotics - Currently no significant diarrhea - c/w Probiotics Chronic back pain / Osteoarthritis - c/w Lidoderm patch - c/w Tylenol PRN Osteoporosis / Recurrent falls - c/w PT and OT - Will be transitioned to ARU today Gastritis / H. Pylori (Pathology 2020) - c/w Carafate / PPI HTN - BP well controlled - c/w Amlodipine at adjusted dose Anemia - No evidence of bleeding - Hg remains stable - Iron panel, B12 and folate noted Protein calorie malnutrition - BMI of 18.7 - Complicating medical care DVT prophylaxis - c/w TEDs/Sequentials DISCHARGE MEDICATIONS: Please see below. ALLERGIES: Please see below. PHYSICAL EXAMINATION ON DISCHARGE: Vitals (See below) General: Lying in bed, appears comfortable, AAOx3 HEENT: NC, AT CVS: RRR, +S1S2 Lungs: Fair air entry b/l, -w/r/r Abdomen: Soft, ND, NT Extremities: - Edema, - Calf tenderness LABORATORY DATA: Please see below. IMAGING: CXR 09/21: Acute basilar opacities and small pleural effusions (left greater than right). Hip XR 09/21: Generalized age-related changes. No acute fracture or dislocation. Lumbar spine XR 09/21: Multilevel degenerative spondylosis. No acute fracture/compression injury or subluxation. Thoracic spine XR 09/21: Age-related osteopenia and degenerative changes. No acute fracture/compression injury. Bibasilar opacities and small pleural effusions. CXR 09/25: Subtle opacity at the left base may represent chronic change versus small residual airspace disease, but is considerably improved when compared with 09/21/2021. No evidence for CHF. Abdomen XR 09/25: Nonspecific. ACTIVITY: [As tolerated]. DISCHARGE PLAN: Follow-up with primary care provider within the next 7 days Remain compliant with treatment plan and medications Return to the ER if you experience any problems DISPOSITION: Acute rehabilitation unit DISCHARGE CONDITION: [Stable]. TIME SPENT ON DISCHARGE: 35 minutes. Vital Signs/I&Os Vital Signs Date Time Temp Pulse Resp B/P (MAP) Pulse Ox O2 Delivery O2 Flow Rate FiO2 09/26/21 06:00 97.3 87 18 128/70 (89) 90 Room Air I&O- Last 24 Hours up to 6 AM 09/26/21 06:00 Intake Total 320 ml Output Total 375 ml Balance -55 ml Laboratory Data Labs 24H Laboratory Tests 2 09/25/21 14:21: Urine Color YELLOW, Urine Appearance HAZY, Urine pH 5.0, Urine Specific [place] 1.015, Urine Protein NEGATIVE, Urine Glucose (UA) NEGATIVE, Urine Ketones NEGATIVE, Urine Blood 1+H, Urine Nitrite NEGATIVE, Urine Bilirubin NEGATIVE, Urine Urobilinogen 0.2, Urine Leukocyte Esterase NEGATIVE, Urine WBC (Auto) 1, Urine RBC (Auto) 1, Urine Hyaline Casts (Auto) 0, Urine Bacteria (Auto) NEGATIVE, Urine Squamous Epithelial Cells 1, Urine Sperm (Auto) 09/25/21 18:45: Erythrocyte Sedimentation Rate 22, Anion Gap 5L, Glomerular Filtration Rate > 60.0, Lactic Acid Level 0.9, Calcium Level 9.4, Whole Blood Ionized Calcium 4.9, Magnesium Level 2.0, Total Bilirubin 0.4, Aspartate Amino Transf (AST/SGOT) 15, Alanine Aminotransferase (ALT/SGPT) 18, Alkaline Phosphatase 56, C-Reactive Protein, Quantitative 0.83H, Total Protein 7.4, Albumin 2.9L, Albumin/Globulin Ratio 0.6L, Amylase Level 65, Lipase 173, Procalcitonin 0.31 09/26/21 06:04: Anion Gap 4L, Glomerular Filtration Rate > 60.0, Calcium Level 8.8, Immature Granulocyte % (Auto) 0.3, Neutrophils (%) (Auto) 56.1, Lymphocytes (%) (Auto) 29.2, Monocytes (%) (Auto) 10.3H, Eosinophils (%) (Auto) 3.2H, Basophils (%) (Auto) 0.9, Neutrophils # (Auto) 3.6, Lymphocytes # (Auto) 1.9, Monocytes # (Auto) 0.7, Eosinophils # (Auto) 0.2, Basophils # (Auto) 0.1, Reticulocyte # (auto) 59.0, Nucleated Red Blood Cells % (auto) 0.0, Percent Reticulocyte Count 2.0H, Reticulocyte Hemoglobin Equivalent 34.5, Iron Level 65, Total Iron Binding Capacity 223L, Transferrin % Saturation 29.1, Ferritin 73, Vitamin B12 Level 1567, Folate 12.5 CBC/BMP Laboratory Tests 09/25/21 18:45 09/26/21 06:04 Microbiology Microbiology 09/22/21 Gram Stain - Final, Complete 09/22/21 Sputum Culture - Final, Complete 09/21/21 Blood Culture - Final, Complete NO GROWTH AFTER 5 DAYS 09/21/21 Blood Culture - Final, Complete NO GROWTH AFTER 5 DAYS Discharge Medications Scheduled Amlodipine Besylate (Amlodipine Besylate) 10 Mg Tablet, 10 MG PO DAILY Cefdinir (Cefdinir) 300 Mg Capsule, 300 MG PO BID Dorzolamide HCl/Timolol Maleat (Dorzolamide-Timolol Eye Drops) 10 Ml Drops, 1 DROP OU BID, (Reported) Doxycycline Hyclate (Doxycycline Hyclate) 100 Mg Tablet, 100 MG PO BID Gabapentin (Gabapentin) 100 Mg Capsule, 100 MG PO TID, (Reported) L.acidoph/L.bulg/B.bif/S.therm (Yesica-Bid Caplet) 1 Each Tablet, 1 EA PO [facility] Latanoprost (Xalatan) 0.005% 2.5ML Drops, 1 DROP OU QHS, (Reported) Omeprazole (Omeprazole) 20 Mg Capsule.dr, 20 MG PO QHS Sucralfate (Sucralfate) 1 Gm/10 Ml Oral.susp, 1 GM PO ACHS Scheduled PRN Albuterol Sulfate (Albuterol Sulfate Hfa) 8.5 Gm Hfa.aer.ad, 2 PUFFS INH QID PRN for SOB/WHEEZING, (Reported) Allergies Coded Allergies: ciprofloxacin (Verified Adverse Reaction, Intermediate, weak and faint, 01/29/20) MANUELITO BREEN MD Sep 26, 2021 09:59
== END 2021-09-26 17:05 | DRG 194 ==
LOC: M ED 07:34 → M ED INP 10:03 → ENRESERV 12:28 → M MSPAV 14:58
PROVIDERS: ADMIT General Practice; ATTEND Internal Medicine
DX: J18.9 Pneumonia, unspecified organism (principal); E46 Unspecified protein-calorie malnutrition; Z68.1 Body mass index [BMI] 19.9 or less, adult; I12.9 Hypertensive chronic kidney disease with stage 1 through stage 4 chronic kidney disease, or unspecified chronic kidney disease; D64.9 Anemia, unspecified; R19.7 Diarrhea, unspecified; M81.0 Age-related osteoporosis without current pathological fracture; R29.6 Repeated falls; M19.90 Unspecified osteoarthritis, unspecified site; N18.30 Chronic kidney disease, stage 3 unspecified; Z79.899 Other long term (current) drug therapy; Z88.8 Allergy status to other drugs, medicaments and biological substances; K57.30 Diverticulosis of large intestine without perforation or abscess without bleeding; K29.50 Unspecified chronic gastritis without bleeding; Z88.5 Allergy status to narcotic agent

== ENCOUNTER 2021-09-26 12:07 | Inpatient (IN) | payer MEDICARE ==
[~2021-09-26] VITALS: Ht 154.9 cm; Wt 43.8 kg
[~2021-09-26 12:07] MED LIST changes: +ALBU8.5H INH; +AMLO1TAB25 PO; +AMLO2.5T3 PO; +CEFD300CAP PO; +DOXY100T PO; +NITR-67 PO; +OMEP-218 PO; +RISATAB3 PO; +SUCR1ORA PO
[2021-09-26] MEDS ORDERED: ONDANSETRON 4 MG TAB PO PRN (12:55)
[2021-09-26] MEDS ORDERED: MAALOX 30 ML SUSP *UDC PO PRN (12:55)
[2021-09-26] MEDS ORDERED: SIMETHICONE 80MG CHEW TAB PO PRN (12:55)
[2021-09-26 16:45] VITALS: BP 137/61
[2021-09-26 20:00] VITALS: BP 134/70
[2021-09-26] MEDS: LEVALBUTEROL HFA 45MCG/ACT 15 GM INHALER INH SCH (20:00)
[2021-09-26] MEDS: guaiFENesin 200 MG TAB PO SCH (20:09)
[2021-09-26] MEDS: DOXYCYCLINE HYCLATE 100MG TABLET PO SCH (20:09)
[2021-09-26] MEDS: ACETAMINOPHEN 500 MG TAB PO SCH (20:10)
[2021-09-26] MEDS: GABAPENTIN 100 MG CAP PO SCH (20:10)
[2021-09-26] MEDS: SUCRALFATE 1 GM TAB PO SCH (20:11)
[2021-09-26] MEDS: OMEPRAZOLE 20 MG CAP PO SCH (20:11)
[2021-09-26] MEDS: LACTOBACILLUS ACIDOPHILUS CAP (BACID) PO SCH (20:12)
[2021-09-26] MEDS: COSOPT OCUMETER PLUS 10ML (DORZOLAMIDE/TIMOLOL) OU SCH (20:12)
[2021-09-26] MEDS: LATANOPROST 0.005% OPHTH SOLN 2.5 ML OU SCH (20:12)
[2021-09-26] MEDS: REMEDY PHYTOPLEX Z-GUARD PASTE 113GM TUBE (FROM STOREROOM PRODUCT) TOP SCH (20:12)
[2021-09-26] MEDS: **NOTE PATIENT COMMENT** MISC XX SCH (20:13)
[2021-09-27 05:00] VITALS: BP 129/62
[2021-09-27 07:21] LABS: BASO # 0.1 10^3/uL (0.0-0.2); BASO % 1.2 % (0.0-1.0); EOS # 0.3 10^3/uL (0.0-0.5); EOS % 4.5 % (0.0-3.0); HEMATOCRIT 29.3 % (36.0-47.0); HEMOGLOBIN 9.2 g/dl (12.0-15.5); LYMPH % 30.7 % (24.0-44.0); MEAN CORPUSCULAR HEMOGLOBIN 29.9 pg (27.0-33.0); MEAN CORPUSCULAR HGB CONC 31.4 g/dl (32.0-36.5); MEAN CORPUSCULAR VOLUME 95.1 fl (80.0-96.0); MONO # 0.8 10^3/uL (0.0-0.8); MONO % 11.7 % (2.0-8.0); NEUTROPHILS # 3.4 10^3/uL (1.5-8.5); NEUTROPHILS % 51.3 % (36.0-66.0); PLATELET COUNT, AUTOMATED 401 10^3/uL (150-450); RED BLOOD COUNT 3.08 10^6/uL (4.00-5.40); WHITE BLOOD COUNT 6.6 10^3/uL (4.0-10.0)
[2021-09-27 07:54] LABS: ALBUMIN 2.6 GM/DL (3.2-5.2); ALT/SGPT 16 U/L (12-78); BILIRUBIN,TOTAL 0.3 MG/DL (0.2-1.0); BLOOD UREA NITROGEN 14 MG/DL (7-18); CALCIUM LEVEL 9.3 MG/DL (8.8-10.2); CARBON DIOXIDE LEVEL 26 MEQ/L (21-32); CHLORIDE LEVEL 109 MEQ/L (98-107); CREATININE FOR GFR 0.93 MG/DL (0.55-1.30); GLOMERULAR FILTRATION RATE > 60.0 (>32); GLUCOSE, FASTING 79 MG/DL (70-100); POTASSIUM SERUM 4.5 MEQ/L (3.5-5.1); SODIUM LEVEL 141 MEQ/L (136-145); TOTAL PROTEIN 6.5 GM/DL (6.4-8.2)
[2021-09-27] MEDS: LEVALBUTEROL HFA 45MCG/ACT 15 GM INHALER INH SCH ×3 (08:00→20:00)
[2021-09-27] MEDS: REMEDY PHYTOPLEX Z-GUARD PASTE 113GM TUBE (FROM STOREROOM PRODUCT) TOP SCH ×3 (09:00→20:03)
[2021-09-27] MEDS: LIDOCAINE 5% (LIDODERM) PATCH TD SCH ×2 (09:00→09:06)
[2021-09-27] MEDS: ACETAMINOPHEN 500 MG TAB PO SCH ×3 (09:06→20:01)
[2021-09-27] MEDS: CEFDINIR 300 MG CAP (OMNICEF) PO SCH (09:06)
[2021-09-27] MEDS: GABAPENTIN 100 MG CAP PO SCH ×3 (09:06→20:02)
[2021-09-27] MEDS: guaiFENesin 200 MG TAB PO SCH ×3 (09:06→20:01)
[2021-09-27] MEDS: LACTOBACILLUS ACIDOPHILUS CAP (BACID) PO SCH ×4 (09:06→20:02)
[2021-09-27] MEDS: COSOPT OCUMETER PLUS 10ML (DORZOLAMIDE/TIMOLOL) OU SCH ×2 (09:07→20:02)
[2021-09-27] MEDS: DOXYCYCLINE HYCLATE 100MG TABLET PO SCH ×2 (09:07→20:02)
[2021-09-27] MEDS: SUCRALFATE 1 GM TAB PO SCH ×4 (09:08→20:02)
--- NOTE | 2021-09-27 11:02 | HPEPDOC ---
Casework Manager Note DATE OF ADMISSION:09-26-21 DATE OF SERVICE: 09-27-21 TIME OF ADMISSION: Please refer to physician's admission order. SOURCE OF ADMISSION INFORMATION: [facility] record and patient CHIEF COMPLAINT: Pneumonia (respiratory disorder non-ventilator dependent) HISTORY OF PRESENT ILLNESS: 86f pmh chronic back pain, protein-calorie malnutrition, CKD3, HLD, osteoporosis, chronic gastritis, H pylori, cystitis, diverticulosis with recent community acquired PNA and UTI who was discharged from [facility] after receiving treatment, but was very weak and home and unable to ambulate and presented to [facility] ED on 09-21-21. She was noted to have leukocytosis with CXR revealing shows acute basilar opacities, left greater than right, with possible left small pleural effusion. No pneumothorax. Lung canela demonstrate chronic- appearing interstitial changes.She was admitted out of concern for hospital acquired PNA. She was started on Vanco and Zosyn then de-escalated to Cefdinir and Doxycycline She complained of back pain which contributed to her mobility limitations with lumbar imaging revealing extensive spondylosis and degenerative changes. She was evaluated by therapy, found to have mobility and ADL impairments and deemed medically appropriate for discharge to ARU on 09-26-21. REVIEW OF SYSTEMS: The following is a completed review of systems and has been reviewed. Review of systems otherwise unremarkable. PAIN: Patient self reports no pain EYES: No recent vision changes EARS, NOSE, & THROAT: No throat pain, or dysphagia, or rhinorrhea CARDIOVASCULAR: Denies chest pain or palpitations PULMONARY: Denies shortness of breath GASTROINTESTINAL: +nausea GENITOURINARY: denies dysuria MUSCULOSKELETAL: generalized weakness NEUROLOGICAL:denies paresthesias HEMATOLOGICAL: denies easy bruising SKIN: denies rash PSYCHIATRIC: Unremarkable All other review of systems found to be negative. PAST MEDICAL HISTORY: as per HPI PAST SURGICAL HISTORY: Skin tag removal, sigmoidoscopy with polyp removal, cholecystectomy ALLERGIES: Please see below. MEDICATIONS: Please see below. SOCIAL HISTORY: No etoh/illicit drugs/smoking, lives with son DIET: regular PHYSICAL EXAMINATION: VITAL SIGNS: Please see below. GENERAL: Pleasant and cooperative. No acute distress. HEENT: PERRL. Extraocular movements intact. Clear conjunctiva CARDIOVASCULAR: Regular rate and rhythm. No murmurs, rubs, or gallops LUNGS: Clear to auscultation bilaterally. No wheezes. No rhonchi ABDOMEN: Soft, nontender, nondistended. Positive bowel sounds. no guarding or rebound tenderness NEUROLOGICAL: Alert and oriented times three. Cranial nerves II through XII grossly intact. Sensation grossly intact] EXTREMITIES:5-\5 strength bilateral upper extremities. 5-\5 strength right lower extremity. 5-/5 strength in left lower extremity. LABORATORY DATA: Please see below. IMAGING:Imaging documentation personally reviewed by record. FUNCTIONAL STATUS: Premorbid: Mod-Independent with all activities of daily life as well as mobility On Admission: Contact guard-stand by assist for functional transfers, ambulation (<50 feet), toileting GOALS: Mod-I for functional transfers, bed mobility, ambulation, ASSESSMENT:86-year-old F with past medical history of HLD CKD, chronic back pain, gastritis with H pylori who presents status post Hospital acquired PNA with weakness. PLAN: 1. REhab- PT/OT advance mobility and ADLs, strengthen/stretch/maintain ROM all 4 limbs 2. Ortho- patient with chronic low back pain, given recent lumbar Xrays- suspect degree of spinal stenosis- cont otmonitor,a ddress pain with lidoderm patching, gabapentin, and tylenol 3. CArdiac- Hx of HTN cont Norvasc, monitor BPs and adjust accordingly 4. Resp- recent HAP cont Cefdinir and Doxycycline (+bacid), xopenex, guaifenesin, monitor for worsening symptoms 5. GI- hx of gastritis due to h pylori cont sucralfate and Prilosec, monitor for C diff given recent abx use -will add zofran for nausea, patient had one BM yesterday, abdomen soft 6. - monitor PVRs (recent UTI) 7. Pain- above 8. DVT ppx- TEDs 9. Dispo- TBD POST ADMISSION PHYSICIAN EVALUATION: Medical and functional status: Description of medical status, medical assessment: As above. Rehabilitation diagnosis and current and prior cold morbid medical conditions as above. Risk of complications and plans to mitigate them as above. Description of functional status current status is as above. Prior status as above. Status compared to preadmission: There are no clinically significant differences between the patient's current status and the information described on the preadmission screening document. Treatment plan anticipated: Treatment plan is as described above. Required disciplines including physical therapy, occupational therapy, others as noted above. Intensity of services: 3 hours a day, 6 days a week. Special considerations: There are no specific special or safety considerations that would likely preclude immediate implementation of an intensive rehabilitation program or subsequently influence the plan of care. ATTESTATION: Considering all the information above, it is my best judgment that this patient requires intensive rehabilitation therapy as described above and an inpatient hospital environment due to the complexity of nursing, medical, and rehabilitation needs required by the patient. Furthermore, this patient can reasonably be expected to participate in an benefit from an inpatient rehabilitation stay with an interdisciplinary team approach to the delivery of rehabilitation care under the direction and supervision of rehabilitation physician PROGNOSIS: Excellent. ESTIMATED LENGTH OF STAY:7-10 days. PROJECTED DISCHARGE DESTINATION: Home with family support and any durable medical equipment required to increase functional safety and mobility. TIME SPENT COUNSELING AND COORDINATING INITIAL CARE: Greater than 70 minutes. Vital Signs Vital Sign - Last 24 Hours 09/26/21 09/26/21 09/27/21 09/27/21 16:45 20:00 05:00 09:06 Temp 98.0 98.6 97.5 Pulse 100 93 78 78 Resp 18 18 18 B/P (MAP) 137/61 (86) 134/70 (91) 129/62 (84) 129/62 Pulse Ox 96 97 99 O2 Delivery Room Air Room Air Room Air Laboratory Data CBC/BMP Laboratory Tests 09/27/21 06:58 Labs 24H Laboratory Tests 2 09/27/21 06:58: Immature Granulocyte % (Auto) 0.6, Neutrophils (%) (Auto) 51.3, Lymphocytes (%) (Auto) 30.7, Monocytes (%) (Auto) 11.7H, Eosinophils (%) (Auto) 4.5H, Basophils (%) (Auto) 1.2H, Neutrophils # (Auto) 3.4, Lymphocytes # (Auto) 2.0, Monocytes # (Auto) 0.8, Eosinophils # (Auto) 0.3, Basophils # (Auto) 0.1, Nucleated Red Blood Cells % (auto) 0.0, Anion Gap 6L, Glomerular Filtration Rate > 60.0, Calcium Level 9.3, Total Bilirubin 0.3, Aspartate Amino Transf (AST/SGOT) 17, Alanine Aminotransferase (ALT/SGPT) 16, Alkaline Phosphatase 50, Total Protein 6.5, Albumin 2.6L, Albumin/Globulin Ratio 0.7L Home Medications Scheduled Amlodipine Besylate (Amlodipine Besylate) 10 Mg Tablet, 10 MG PO DAILY Cefdinir (Cefdinir) 300 Mg Capsule, 300 MG PO BID Dorzolamide HCl/Timolol Maleat (Dorzolamide-Timolol Eye Drops) 10 Ml Drops, 1 DROP OU BID, (Reported) Doxycycline Hyclate (Doxycycline Hyclate) 100 Mg Tablet, 100 MG PO BID Gabapentin (Gabapentin) 100 Mg Capsule, 100 MG PO TID, (Reported) L.acidoph/L.bulg/B.bif/S.therm (Yesica-Bid Caplet) 1 Each Tablet, 1 EA PO [facility] Latanoprost (Xalatan) 0.005% 2.5ML Drops, 1 DROP OU QHS, (Reported) Omeprazole (Omeprazole) 20 Mg Capsule.dr, 20 MG PO QHS Sucralfate (Sucralfate) 1 Gm/10 Ml Oral.susp, 1 GM PO ACHS Scheduled PRN Albuterol Sulfate (Albuterol Sulfate Hfa) 8.5 Gm Hfa.aer.ad, 2 PUFFS INH QID PRN for SOB/WHEEZING, (Reported) Allergies Coded Allergies: ciprofloxacin (Verified Adverse Reaction, Intermediate, weak and faint, 01/29/20) A-FIB/CHADSVASC A-FIB History Current/History of A-Fib/PAF?: No Current PO Anticoag Therapy: No SHIRA GRAY MD Sep 27, 2021 11:02
--- NOTE | 2021-09-27 13:02 | IPNPDOC ---
Text Note Date of Service The patient was seen on 09/27/21. NOTE Subjective: Patient is an 86-year-old female with a PMHx of HTN, DLP, CKD3, Protein calorie malnutrition (BMI 18.7), Osteoporosis, Gastritis who presented to the ER on 09/21 with weakness and cough. Patient was recently discharged from [facility] after being treated for CAP and UTI for 4 days. While at home. Patient complained of generalized weakness and was lowered down to the bathroom floor by her son. Patient was admission to hospitalist service for further evaluation and treatment and she was ultimately transitioned to the ARU on 09/26. Patient was seen and examined at the bedside. Currently she notes some nausea, without any vomiting. Patient denies any abdominal discomfort. Reports a BM yesterday. Denies any urinary discomfort. Patient denies any significant cough, shortness of breath or palpitations. Objective: Vitals (See below) General: Lying in bed, reporting nausea, Awake / Alert HEENT: NC, AT CVS: RRR, +S1S2 Lungs: Fair air entry b/l, -w/r/r Abdomen: Soft, ND, NT Extremities: - Edema, - Calf tenderness Imaging: CXR 09/21: Acute basilar opacities and small pleural effusions (left greater than right). Hip XR 09/21: Generalized age-related changes. No acute fracture or dislocation. Lumbar spine XR 09/21: Multilevel degenerative spondylosis. No acute fracture/compression injury or subluxation. Thoracic spine XR 09/21: Age-related osteopenia and degenerative changes. No acute fracture/compression injury. Bibasilar opacities and small pleural effusions. CXR 09/25: Subtle opacity at the left base may represent chronic change versus small residual airspace disease, but is considerably improved when compared with 09/21/2021. No evidence for CHF. Abdomen XR 09/25: Nonspecific. Assessment and plan: Cough - likely 2/2 bilateral multifocal PNA - Currently patient denies any shortness of breath or cough - Patient remains hemodynamically stable and afebrile - s/p Leukocytosis - MRSA negative / Legionella antigen negative / Strep pneumonia antigen negative - Blood cultures 09/21: No growth at 3 days - c/w Cefdinir / Doxycycline; s/p Vancomycin and Zosyn (Antibiotic day #7) Diarrhea - likely 2/2 antibiotics - Currently no significant diarrhea - c/w Probiotics Chronic back pain / Osteoarthritis - c/w Lidoderm patch - c/w Tylenol PRN Osteoporosis / Recurrent falls - c/w PT and OT as per ARU HTN - BP remains well controlled - c/w Amlodipine; increased dose from outpatient Anemia - No evidence of bleeding - Hg remains stable - Iron panel, B12 and folate noted Neuropathy - c/w Gabapentin Protein calorie malnutrition - BMI of 18.7 - Complicating medical care Gastritis / H. Pylori (Pathology 2019) - c/w Carafate / PPI DVT prophylaxis - c/w TEDs/Sequentials Disposition: - As per ARU VS,Jhonny, I+O VS, Jhonny, I+O Laboratory Tests 09/27/21 06:58 Vital Signs Date Time Temp Pulse Resp B/P (MAP) Pulse Ox O2 Delivery O2 Flow Rate FiO2 09/27/21 09:06 78 129/62 09/27/21 05:00 97.5 18 99 Room Air I&O- Last 24 Hours up to 6 AM 09/27/21 06:00 Intake Total 120 ml Balance 120 ml MANUELITO BREEN MD Sep 27, 2021 12:59
[2021-09-27] MEDS ORDERED: ONDANSETRON 4 MG ORAL DISINTEGRATING TAB PO ONE (13:20)
[2021-09-27 14:00] VITALS: BP 141/67
[2021-09-27] MEDS ORDERED: SENNA 8.6 MG TAB (SENOKOT) PO PRN (15:25)
[2021-09-27] MEDS: BISACODYL 5 MG TAB PO SCH (15:39)
[2021-09-27] MEDS: SIMETHICONE 80MG CHEW TAB PO SCH ×2 (16:34→20:02)
[2021-09-27] MEDS ORDERED: ONDANSETRON 4 MG ORAL DISINTEGRATING TAB PO PRN (19:00)
[2021-09-27 20:00] VITALS: BP 118/57
[2021-09-27] MEDS: DOCUSATE SODIUM 100MG CAPSULE PO SCH (20:02)
[2021-09-27] MEDS: LATANOPROST 0.005% OPHTH SOLN 2.5 ML OU SCH (20:02)
[2021-09-27] MEDS: OMEPRAZOLE 20 MG CAP PO SCH (20:02)
[2021-09-27] MEDS: **NOTE PATIENT COMMENT** MISC XX SCH (20:03)
[2021-09-28 06:00] VITALS: BP 116/57
[2021-09-28] MEDS: LEVALBUTEROL HFA 45MCG/ACT 15 GM INHALER INH SCH ×3 (08:00→20:00)
[2021-09-28] MEDS: DOCUSATE SODIUM 100MG CAPSULE PO SCH ×2 (09:00→20:40)
[2021-09-28] MEDS: LIDOCAINE 5% (LIDODERM) PATCH TD SCH (09:03)
[2021-09-28] MEDS: SIMETHICONE 80MG CHEW TAB PO SCH ×3 (09:03→20:41)
[2021-09-28] MEDS: GABAPENTIN 100 MG CAP PO SCH ×3 (09:03→20:40)
[2021-09-28] MEDS: ACETAMINOPHEN 500 MG TAB PO SCH ×3 (09:03→21:00)
[2021-09-28] MEDS: SUCRALFATE 1 GM TAB PO SCH ×4 (09:03→20:40)
[2021-09-28] MEDS: DOXYCYCLINE HYCLATE 100MG TABLET PO SCH ×2 (09:03→20:39)
[2021-09-28] MEDS: COSOPT OCUMETER PLUS 10ML (DORZOLAMIDE/TIMOLOL) OU SCH ×2 (09:04→20:42)
[2021-09-28] MEDS: CEFDINIR 300 MG CAP (OMNICEF) PO SCH (09:04)
[2021-09-28] MEDS: LACTOBACILLUS ACIDOPHILUS CAP (BACID) PO SCH ×4 (09:04→20:40)
[2021-09-28] MEDS: guaiFENesin 200 MG TAB PO SCH ×3 (09:04→20:40)
[2021-09-28] MEDS: REMEDY PHYTOPLEX Z-GUARD PASTE 113GM TUBE (FROM STOREROOM PRODUCT) TOP SCH ×3 (09:05→20:42)
[2021-09-28] MEDS: BISACODYL 5 MG TAB PO SCH (09:11)
[2021-09-28] MEDS ORDERED: BISACODYL 10 MG SUPP PR ONE (13:30)
[2021-09-28 14:00] VITALS: BP 118/56
[2021-09-28 20:14] VITALS: BP 136/58
[2021-09-28] MEDS: OMEPRAZOLE 20 MG CAP PO SCH (20:41)
[2021-09-28] MEDS: LATANOPROST 0.005% OPHTH SOLN 2.5 ML OU SCH (20:42)
[2021-09-28] MEDS: **NOTE PATIENT COMMENT** MISC XX SCH (20:44)
[2021-09-29 05:42] VITALS: BP 116/58
[2021-09-29] MEDS: SUCRALFATE 1 GM TAB PO SCH ×4 (06:44→20:29)
[2021-09-29 07:31] LABS: BASO # 0.1 10^3/uL (0.0-0.2); BASO % 1.7 % (0.0-1.0); EOS # 0.3 10^3/uL (0.0-0.5); EOS % 5.4 % (0.0-3.0); HEMATOCRIT 29.9 % (36.0-47.0); HEMOGLOBIN 9.3 g/dl (12.0-15.5); LYMPH # 1.8 10^3/uL (1.5-5.0); LYMPH % 30.2 % (24.0-44.0); MEAN CORPUSCULAR HEMOGLOBIN 29.4 pg (27.0-33.0); MEAN CORPUSCULAR HGB CONC 31.1 g/dl (32.0-36.5); MEAN CORPUSCULAR VOLUME 94.6 fl (80.0-96.0); MONO # 0.5 10^3/uL (0.0-0.8); MONO % 8.7 % (2.0-8.0); NEUTROPHILS # 3.2 10^3/uL (1.5-8.5); NEUTROPHILS % 53.7 % (36.0-66.0); PLATELET COUNT, AUTOMATED 406 10^3/uL (150-450); RED BLOOD COUNT 3.16 10^6/uL (4.00-5.40); WHITE BLOOD COUNT 5.9 10^3/uL (4.0-10.0)
[2021-09-29 07:52] LABS: BLOOD UREA NITROGEN 17 MG/DL (7-18); CALCIUM LEVEL 9.3 MG/DL (8.8-10.2); CARBON DIOXIDE LEVEL 25 MEQ/L (21-32); CHLORIDE LEVEL 108 MEQ/L (98-107); GLOMERULAR FILTRATION RATE > 60.0 (>32); GLUCOSE, FASTING 79 MG/DL (70-100); POTASSIUM SERUM 4.2 MEQ/L (3.5-5.1); SODIUM LEVEL 138 MEQ/L (136-145)
[2021-09-29] MEDS: LEVALBUTEROL HFA 45MCG/ACT 15 GM INHALER INH SCH ×4 (08:00→20:00)
[2021-09-29] MEDS: ANUSOL HC 25MG SUPP PR SCH ×2 (09:00→20:29)
[2021-09-29] MEDS: LIDOCAINE 5% (LIDODERM) PATCH TD SCH (09:00)
[2021-09-29] MEDS: LACTOBACILLUS ACIDOPHILUS CAP (BACID) PO SCH ×4 (09:21→20:28)
[2021-09-29] MEDS: CEFDINIR 300 MG CAP (OMNICEF) PO SCH (09:21)
[2021-09-29] MEDS: guaiFENesin 200 MG TAB PO SCH ×3 (09:21→20:29)
[2021-09-29] MEDS: BISACODYL 5 MG TAB PO SCH (09:21)
[2021-09-29] MEDS: SIMETHICONE 80MG CHEW TAB PO SCH ×3 (09:21→20:29)
[2021-09-29] MEDS: DOXYCYCLINE HYCLATE 100MG TABLET PO SCH (09:21)
[2021-09-29] MEDS: DOCUSATE SODIUM 100MG CAPSULE PO SCH ×2 (09:21→20:27)
[2021-09-29] MEDS: GABAPENTIN 100 MG CAP PO SCH ×3 (09:21→20:26)
[2021-09-29] MEDS: ACETAMINOPHEN 500 MG TAB PO SCH ×3 (09:22→20:28)
[2021-09-29] MEDS: REMEDY PHYTOPLEX Z-GUARD PASTE 113GM TUBE (FROM STOREROOM PRODUCT) TOP SCH ×3 (09:22→20:29)
[2021-09-29] MEDS: COSOPT OCUMETER PLUS 10ML (DORZOLAMIDE/TIMOLOL) OU SCH ×2 (09:23→20:30)
--- NOTE | 2021-09-29 10:13 | IPNPDOC ---
PM&R Progress Note DATE OF SERVICE: Sep 28, 2021 [employer] Progress Note Subjective: Patient reporting her nausea is better today, but she still feels the urge to have a bowel movement. REVIEW OF SYSTEMS: The following is a completed review of systems and has been reviewed. Review of systems otherwise unremarkable. PAIN: Patient self reports no pain EYES: No recent vision changes EARS, NOSE, & THROAT: No throat pain, or dysphagia, or rhinorrhea CARDIOVASCULAR: Denies chest pain or palpitations PULMONARY: Denies shortness of breath GASTROINTESTINAL: +constipation GENITOURINARY: denies dysuria MUSCULOSKELETAL: generalized weakness NEUROLOGICAL:denies paresthesias HEMATOLOGICAL: denies easy bruising SKIN: denies rash PSYCHIATRIC: Unremarkable All other review of systems found to be negative. PHYSICAL EXAMINATION: VITAL SIGNS: Please see below. GENERAL: Pleasant and cooperative. No acute distress. HEENT: PERRL. Extraocular movements intact. Clear conjunctiva CARDIOVASCULAR: Regular rate and rhythm. No murmurs, rubs, or gallops LUNGS: Clear to auscultation bilaterally. No wheezes. No rhonchi ABDOMEN: Soft, nontender, nondistended. Positive bowel sounds. no guarding or rebound tenderness NEUROLOGICAL: Alert and oriented times three. Cranial nerves II through XII grossly intact. Sensation grossly intact] EXTREMITIES:5-\5 strength bilateral upper extremities. 5-\5 strength right lower extremity. 5-/5 strength in left lower extremity. ASSESSMENT:86-year-old F with past medical history of HLD CKD, chronic back pa in, gastritis with H pylori who presents status post Hospital acquired PNA with weakness. PLAN: 1. REhab- PT/OT advance mobility and ADLs, strengthen/stretch/maintain ROM all 4 limbs 2. Ortho- patient with chronic low back pain, given recent lumbar Xrays- suspect degree of spinal stenosis- cont to monitor, address pain with lidoderm patching, gabapentin, and tylenol 3. CArdiac- Hx of HTN cont Norvasc, monitor BPs and adjust accordingly 4. Resp- recent HAP cont Cefdinir and Doxycycline (+bacid), xopenex, guaifenesin, monitor for worsening symptoms 5. GI- hx of gastritis due to h pylori cont sucralfate and Prilosec, monitor for C diff given recent abx use -cont zofran prn for nausea which has improved, cont simethicone, will order bisacodyl suppository as patient feeling rectal pressure and the urge to have a BM 6. - monitor PVRs (recent UTI)-patient with urinary frequency, reports this is chronic 7. Pain- above 8. DVT ppx- TEDs 9. Dispo- TBD Barriers to d/c and functional status- Patient is requiring contact guard for mobility and min assist for dressing and will benefit from ongoing PT and OT. She is having difficulty with bowel management, will need to finish a course of antibiotics for recent PNA and is being monitored for potential worsening of her GI and/or respiratory symptoms. Allergies Coded Allergies: ciprofloxacin (Verified Adverse Reaction, Intermediate, weak and faint, 01/29/20) Vital Signs Vital Signs Date Time Temp Pulse Resp B/P (MAP) Pulse Ox O2 Delivery O2 Flow Rate FiO2 09/29/21 09:21 74 116/58 09/29/21 05:42 97.6 18 97 Room Air Laboratory Data CBC/BMP Laboratory Tests 09/29/21 06:46 Labs 24H Laboratory Tests 2 09/29/21 06:46: Immature Granulocyte % (Auto) 0.3, Neutrophils (%) (Auto) 53.7, Lymphocytes (%) (Auto) 30.2, Monocytes (%) (Auto) 8.7H, Eosinophils (%) (Auto) 5.4H, Basophils (%) (Auto) 1.7H, Neutrophils # (Auto) 3.2, Lymphocytes # (Auto) 1.8, Monocytes # (Auto) 0.5, Eosinophils # (Auto) 0.3, Basophils # (Auto) 0.1, Nucleated Red Blood Cells % (auto) 0.0, Anion Gap 5L, Glomerular Filtration Rate > 60.0, Calcium Level 9.3 Current Medications Current Medications Current Medications Medications (Trade) Dose Ordered Sig/Kari Route PRN Reason Start Time Stop Time Status Last Admin Dose Admin Acetaminophen (Tylenol Tab) 1,000 mg TID PO 09/26/21 21:00 09/29/21 09:22 Al Hydrox/Mg Hydrox/Simethicone (Mylanta) 30 ml Q4HP PRN PO DYSPEPSIA 09/26/21 12:55 Amlodipine Besylate (Norvasc) 10 mg DAILY PO 09/27/21 09:00 09/29/21 09:21 Bisacodyl (Dulcolax Tab) 5 mg DAILY PO 12/29/21 15:25 09/29/21 09:21 Cefdinir (Omnicef) 300 mg DAILY PO 09/27/21 09:00 09/29/21 09:21 Docusate Sodium (Colace) 100 mg BID PO 09/27/21 21:00 09/29/21 09:21 Dorzolamide/ Timolol (Cosopt Ocumeter Plus) 1 drop BID OU 09/26/21 21:00 09/29/21 09:23 Doxycycline Hyclate (Vibramycin) 100 mg BID PO 09/26/21 21:00 09/29/21 09:21 Gabapentin (Neurontin) 100 mg TID PO 09/26/21 21:00 09/29/21 09:21 Guaifenesin (Robitussin Tab) 400 mg TID PO 09/26/21 21:00 09/29/21 09:21 Lactobacillus Acidophilus (Bacid) 1 ea [facility] PO 09/26/21 21:00 09/29/21 09:21 Latanoprost (Xalatan 0.005% Op Soln) 1 drop QHS OU 09/26/21 21:00 09/28/21 20:42 Levalbuterol HCl (Xopenex Hfa) 2 puff RQID INH 09/26/21 20:00 Lidocaine (Lidoderm Patch) 2 patch DAILY TD 09/27/21 09:00 09/28/21 09:03 Non-Formulary Medication ( See Comment Field Below ) REMOVE LIDODERM PATCH DAILY@21 XX 09/26/21 21:00 09/28/21 20:44 Omeprazole (PriLOSEC) 20 mg QHS PO 09/26/21 21:00 09/28/21 20:41 Ondansetron HCl (Zofran Odt) 4 mg Q6HP PRN PO NAUSEA OR VOMITING 09/27/21 19:00 Ondansetron HCl (Zofran) 4 mg Q6HP PRN PO NAUSEA 09/26/21 12:55 09/27/21 13:18 DC Senna (Senokot) 1 tab DAILYPRN PRN PO CONSTIPATION 09/27/21 15:25 Simethicone (Mylicon) 80 mg QIDP PRN PO BLOATING 09/26/21 12:55 09/27/21 15:27 DC Simethicone (Mylicon) 80 mg TID PO 09/27/21 16:00 09/29/21 09:21 Sucralfate (Carafate) 1 gm ACHS PO 09/26/21 21:00 09/29/21 06:44 SHIRA GRAY MD Sep 29, 2021 10:13
--- NOTE | 2021-09-29 10:13 | IPNPDOC ---
PM&R Progress Note DATE OF SERVICE: Sep 29, 2021 [employer] Progress Note Subjective: Patient reporting rectum feels very sore and that this has been an issue for years. REVIEW OF SYSTEMS: The following is a completed review of systems and has been reviewed. Review of systems otherwise unremarkable. PAIN: Patient self reports no pain EYES: No recent vision changes EARS, NOSE, & THROAT: No throat pain, or dysphagia, or rhinorrhea CARDIOVASCULAR: Denies chest pain or palpitations PULMONARY: Denies shortness of breath GASTROINTESTINAL: +rectal discomfort (chronic) GENITOURINARY: denies dysuria MUSCULOSKELETAL: generalized weakness NEUROLOGICAL:denies paresthesias HEMATOLOGICAL: denies easy bruising SKIN: denies rash PSYCHIATRIC: Unremarkable All other review of systems found to be negative. PHYSICAL EXAMINATION: VITAL SIGNS: Please see below. GENERAL: Pleasant and cooperative. No acute distress. HEENT: PERRL. Extraocular movements intact. Clear conjunctiva CARDIOVASCULAR: Regular rate and rhythm. No murmurs, rubs, or gallops LUNGS: Clear to auscultation bilaterally. No wheezes. No rhonchi ABDOMEN: Soft, nontender, nondistended. Positive bowel sounds. no guarding or rebound tenderness NEUROLOGICAL: Alert and oriented times three. Cranial nerves II through XII grossly intact. Sensation grossly intact] EXTREMITIES:5-\5 strength bilateral upper extremities. 5-\5 strength right lower extremity. 5-/5 strength in left lower extremity. ASSESSMENT:86-year-old F with past medical history of HLD CKD, chronic back pain , gastritis with H pylori who presents status post Hospital acquired PNA with weakness. PLAN: 1. REhab- PT/OT advance mobility and ADLs, strengthen/stretch/maintain ROM all 4 limbs 2. Ortho- patient with chronic low back pain, given recent lumbar Xrays- suspect degree of spinal stenosis- cont to monitor, address pain with lidoderm patching, gabapentin, and tylenol 3. CArdiac- Hx of HTN cont Norvasc, monitor BPs and adjust accordingly 4. Resp- recent HAP cont Cefdinir and Doxycycline (+bacid), xopenex, guaifenesin, monitor for worsening symptoms 5. GI- hx of gastritis due to h pylori cont sucralfate and Prilosec, monitor for C diff given recent abx use -cont zofran prn for nausea which has improved, cont simethicone, s/p bisacodyl suppository for rectla pressure, will add rectal Anusol for discomfort which patient reports his chronic 6. - monitor PVRs (recent UTI)-patient with urinary frequency, reports this is chronic 7. Pain- above 8. DVT ppx- TEDs 9. Dispo- TBD Barriers to d/c and functional status- Patient is requiring standby-assist for mobility and ADLs and will benefit from ongoing PT and OT. She is having difficulty with bowel management, will need to finish a course of antibiotics for recent PNA and is being monitored for potential worsening of her GI and/or respiratory symptoms. Allergies Coded Allergies: ciprofloxacin (Verified Adverse Reaction, Intermediate, weak and faint, 01/29/20) Vital Signs Vital Signs Date Time Temp Pulse Resp B/P (MAP) Pulse Ox O2 Delivery O2 Flow Rate FiO2 09/29/21 09:21 74 116/58 09/29/21 05:42 97.6 18 97 Room Air Laboratory Data CBC/BMP Laboratory Tests 09/29/21 06:46 Labs 24H Laboratory Tests 2 09/29/21 06:46: Immature Granulocyte % (Auto) 0.3, Neutrophils (%) (Auto) 53.7, Lymphocytes (%) (Auto) 30.2, Monocytes (%) (Auto) 8.7H, Eosinophils (%) (Auto) 5.4H, Basophils (%) (Auto) 1.7H, Neutrophils # (Auto) 3.2, Lymphocytes # (Auto) 1.8, Monocytes # (Auto) 0.5, Eosinophils # (Auto) 0.3, Basophils # (Auto) 0.1, Nucleated Red Blood Cells % (auto) 0.0, Anion Gap 5L, Glomerular Filtration Rate > 60.0, Calcium Level 9.3 Current Medications Current Medications Current Medications Medications (Trade) Dose Ordered Sig/Kari Route PRN Reason Start Time Stop Time Status Last Admin Dose Admin Acetaminophen (Tylenol Tab) 1,000 mg TID PO 09/26/21 21:00 09/29/21 09:22 Al Hydrox/Mg Hydrox/Simethicone (Mylanta) 30 ml Q4HP PRN PO DYSPEPSIA 09/26/21 12:55 Amlodipine Besylate (Norvasc) 10 mg DAILY PO 09/27/21 09:00 09/29/21 09:21 Bisacodyl (Dulcolax Tab) 5 mg DAILY PO 09/27/21 15:25 09/29/21 09:21 Cefdinir (Omnicef) 300 mg DAILY PO 09/27/21 09:00 09/29/21 09:21 Docusate Sodium (Colace) 100 mg BID PO 09/27/21 21:00 09/29/21 09:21 Dorzolamide/ Timolol (Cosopt Ocumeter Plus) 1 drop BID OU 09/26/21 21:00 09/29/21 09:23 Doxycycline Hyclate (Vibramycin) 100 mg BID PO 09/26/21 21:00 09/29/21 09:21 Gabapentin (Neurontin) 100 mg TID PO 09/26/21 21:00 09/29/21 09:21 Guaifenesin (Robitussin Tab) 400 mg TID PO 09/26/21 21:00 09/29/21 09:21 Lactobacillus Acidophilus (Bacid) 1 ea WMHS PO 09/26/21 21:00 09/29/21 09:21 Latanoprost (Xalatan 0.005% Op Soln) 1 drop QHS OU 09/26/21 21:00 09/28/21 20:42 Levalbuterol HCl (Xopenex Hfa) 2 puff RQID INH 09/26/21 20:00 Lidocaine (Lidoderm Patch) 2 patch DAILY TD 09/27/21 09:00 09/28/21 09:03 Non-Formulary Medication ( See Comment Field Below ) REMOVE LIDODERM PATCH DAILY@21 XX 09/26/21 21:00 09/28/21 20:44 Omeprazole (PriLOSEC) 20 mg QHS PO 09/26/21 21:00 09/28/21 20:41 Ondansetron HCl (Zofran Odt) 4 mg Q6HP PRN PO NAUSEA OR VOMITING 09/27/21 19:00 Ondansetron HCl (Zofran) 4 mg Q6HP PRN PO NAUSEA 09/26/21 12:55 09/27/21 13:18 DC Senna (Senokot) 1 tab DAILYPRN PRN PO CONSTIPATION 09/27/21 15:25 Simethicone (Mylicon) 80 mg QIDP PRN PO BLOATING 09/26/21 12:55 09/27/21 15:27 DC Simethicone (Mylicon) 80 mg TID PO 09/27/21 16:00 09/29/21 09:21 Sucralfate (Carafate) 1 gm ACHS PO 09/26/21 21:00 09/29/21 06:44 SHIRA GRAY MD Sep 29, 2021 10:13
[2021-09-29 14:00] VITALS: BP 109/54
[2021-09-29 20:00] VITALS: BP 111/56
[2021-09-29] MEDS: OMEPRAZOLE 20 MG CAP PO SCH (20:29)
[2021-09-29] MEDS: **NOTE PATIENT COMMENT** MISC XX SCH (20:30)
[2021-09-29] MEDS: LATANOPROST 0.005% OPHTH SOLN 2.5 ML OU SCH (20:30)
[2021-09-30 06:00] VITALS: BP 131/66
[2021-09-30] MEDS: SUCRALFATE 1 GM TAB PO SCH ×4 (07:30→20:33)
[2021-09-30] MEDS: LEVALBUTEROL HFA 45MCG/ACT 15 GM INHALER INH SCH ×4 (08:00→20:00)
[2021-09-30] MEDS: LACTOBACILLUS ACIDOPHILUS CAP (BACID) PO SCH ×4 (08:00→20:33)
[2021-09-30] MEDS: guaiFENesin 200 MG TAB PO SCH ×3 (08:06→20:33)
[2021-09-30] MEDS: SIMETHICONE 80MG CHEW TAB PO SCH ×3 (08:06→20:33)
[2021-09-30] MEDS: LIDOCAINE 5% (LIDODERM) PATCH TD SCH (08:07)
[2021-09-30] MEDS: ANUSOL HC 25MG SUPP PR SCH ×2 (08:07→20:33)
[2021-09-30] MEDS: ACETAMINOPHEN 500 MG TAB PO SCH ×3 (08:14→20:32)
[2021-09-30] MEDS: GABAPENTIN 100 MG CAP PO SCH ×3 (08:14→20:32)
[2021-09-30] MEDS: COSOPT OCUMETER PLUS 10ML (DORZOLAMIDE/TIMOLOL) OU SCH ×2 (08:14→20:34)
[2021-09-30] MEDS: REMEDY PHYTOPLEX Z-GUARD PASTE 113GM TUBE (FROM STOREROOM PRODUCT) TOP SCH ×3 (08:15→20:33)
[2021-09-30] MEDS: BISACODYL 5 MG TAB PO SCH (08:21)
[2021-09-30] MEDS: DOCUSATE SODIUM 100MG CAPSULE PO SCH ×2 (08:21→20:32)
[2021-09-30 14:00] VITALS: BP 111/55
[2021-09-30 20:00] VITALS: BP 113/53
[2021-09-30] MEDS: OMEPRAZOLE 20 MG CAP PO SCH (20:32)
[2021-09-30] MEDS: **NOTE PATIENT COMMENT** MISC XX SCH (20:33)
[2021-09-30] MEDS: LATANOPROST 0.005% OPHTH SOLN 2.5 ML OU SCH (20:34)
[2021-10-01 06:00] VITALS: BP 117/57
[2021-10-01] MEDS: LACTOBACILLUS ACIDOPHILUS CAP (BACID) PO SCH ×4 (07:11→20:14)
[2021-10-01] MEDS: SUCRALFATE 1 GM TAB PO SCH ×4 (07:11→20:14)
[2021-10-01] MEDS: SIMETHICONE 80MG CHEW TAB PO SCH ×3 (07:11→20:14)
[2021-10-01] MEDS: LIDOCAINE 5% (LIDODERM) PATCH TD SCH (07:12)
[2021-10-01] MEDS: guaiFENesin 200 MG TAB PO SCH ×3 (07:12→20:14)
[2021-10-01] MEDS: REMEDY PHYTOPLEX Z-GUARD PASTE 113GM TUBE (FROM STOREROOM PRODUCT) TOP SCH ×3 (07:12→20:15)
[2021-10-01] MEDS: ANUSOL HC 25MG SUPP PR SCH ×2 (07:12→20:14)
[2021-10-01] MEDS: ACETAMINOPHEN 500 MG TAB PO SCH ×3 (07:15→20:13)
[2021-10-01] MEDS: GABAPENTIN 100 MG CAP PO SCH ×3 (07:16→20:13)
[2021-10-01] MEDS: COSOPT OCUMETER PLUS 10ML (DORZOLAMIDE/TIMOLOL) OU SCH ×2 (07:16→20:13)
[2021-10-01] MEDS: DOCUSATE SODIUM 100MG CAPSULE PO SCH ×2 (07:16→20:13)
[2021-10-01] MEDS: BISACODYL 5 MG TAB PO SCH (07:16)
[2021-10-01] MEDS: LEVALBUTEROL HFA 45MCG/ACT 15 GM INHALER INH SCH ×4 (08:00→20:00)
[2021-10-01] MEDS: oxyBUTYnin 5 MG TAB PO SCH (11:16)
[2021-10-01 14:00] VITALS: BP 107/52
[2021-10-01 20:00] VITALS: BP 117/59
[2021-10-01] MEDS: LATANOPROST 0.005% OPHTH SOLN 2.5 ML OU SCH (20:13)
[2021-10-01] MEDS: OMEPRAZOLE 20 MG CAP PO SCH (20:13)
[2021-10-01] MEDS: **NOTE PATIENT COMMENT** MISC XX SCH (20:15)
[2021-10-01] MEDS ORDERED: PHENAZOPYRIDINE 100 MG TAB PO ONE (20:25)
[2021-10-02 06:00] VITALS: BP 127/58
[2021-10-02] MEDS: LEVALBUTEROL HFA 45MCG/ACT 15 GM INHALER INH SCH ×4 (07:16→20:00)
[2021-10-02] MEDS: SUCRALFATE 1 GM TAB PO SCH ×5 (07:30→21:00)
[2021-10-02] MEDS: DOCUSATE SODIUM 100MG CAPSULE PO SCH ×2 (07:43→21:46)
[2021-10-02] MEDS: GABAPENTIN 100 MG CAP PO SCH ×3 (07:44→21:46)
[2021-10-02] MEDS: ACETAMINOPHEN 500 MG TAB PO SCH ×3 (07:44→21:00)
[2021-10-02] MEDS: SIMETHICONE 80MG CHEW TAB PO SCH ×3 (07:44→21:46)
[2021-10-02] MEDS: BISACODYL 5 MG TAB PO SCH (07:44)
[2021-10-02] MEDS: LACTOBACILLUS ACIDOPHILUS CAP (BACID) PO SCH ×5 (07:45→21:00)
[2021-10-02] MEDS: LIDOCAINE 5% (LIDODERM) PATCH TD SCH (07:46)
[2021-10-02] MEDS: ANUSOL HC 25MG SUPP PR SCH ×2 (07:47→21:46)
[2021-10-02] MEDS: oxyBUTYnin 5 MG TAB PO SCH (07:47)
[2021-10-02] MEDS: guaiFENesin 200 MG TAB PO SCH ×3 (07:47→21:00)
[2021-10-02] MEDS: COSOPT OCUMETER PLUS 10ML (DORZOLAMIDE/TIMOLOL) OU SCH ×2 (07:48→21:50)
[2021-10-02] MEDS: REMEDY PHYTOPLEX Z-GUARD PASTE 113GM TUBE (FROM STOREROOM PRODUCT) TOP SCH ×3 (07:48→21:00)
[2021-10-02 10:44] LABS: BASO # 0.1 10^3/uL (0.0-0.2); BASO % 0.8 % (0.0-1.0); EOS # 0.2 10^3/uL (0.0-0.5); HEMATOCRIT 27.5 % (36.0-47.0); HEMOGLOBIN 8.7 g/dl (12.0-15.5); LYMPH # 1.3 10^3/uL (1.5-5.0); LYMPH % 15.1 % (24.0-44.0); MEAN CORPUSCULAR HEMOGLOBIN 30.1 pg (27.0-33.0); MEAN CORPUSCULAR HGB CONC 31.6 g/dl (32.0-36.5); MEAN CORPUSCULAR VOLUME 95.2 fl (80.0-96.0); MONO # 0.6 10^3/uL (0.0-0.8); MONO % 6.6 % (2.0-8.0); NEUTROPHILS # 6.4 10^3/uL (1.5-8.5); NEUTROPHILS % 75.1 % (36.0-66.0); PLATELET COUNT, AUTOMATED 335 10^3/uL (150-450); RED BLOOD COUNT 2.89 10^6/uL (4.00-5.40); WHITE BLOOD COUNT 8.5 10^3/uL (4.0-10.0)
[2021-10-02 11:03] LABS: BLOOD UREA NITROGEN 25 MG/DL (7-18); CALCIUM LEVEL 9.4 MG/DL (8.8-10.2); CARBON DIOXIDE LEVEL 28 MEQ/L (21-32); CHLORIDE LEVEL 105 MEQ/L (98-107); GLOMERULAR FILTRATION RATE > 60.0 (>32); GLUCOSE, FASTING 94 MG/DL (70-100); POTASSIUM SERUM 4.5 MEQ/L (3.5-5.1); SODIUM LEVEL 138 MEQ/L (136-145)
[2021-10-02 14:49] VITALS: BP 138/75
[2021-10-02 20:00] VITALS: BP 121/57
[2021-10-02] MEDS: OMEPRAZOLE 20 MG CAP PO SCH (21:46)
[2021-10-02] MEDS: LATANOPROST 0.005% OPHTH SOLN 2.5 ML OU SCH (21:50)
[2021-10-02] MEDS: **NOTE PATIENT COMMENT** MISC XX SCH (21:50)
[2021-10-03 06:00] VITALS: BP 118/58
[2021-10-03] MEDS: SUCRALFATE 1 GM TAB PO SCH ×2 (06:38→12:00)
[2021-10-03] MEDS: LEVALBUTEROL HFA 45MCG/ACT 15 GM INHALER INH SCH (08:00)
[2021-10-03] MEDS: LACTOBACILLUS ACIDOPHILUS CAP (BACID) PO SCH ×2 (08:00→12:10)
[2021-10-03] MEDS: BISACODYL 5 MG TAB PO SCH (08:48)
[2021-10-03] MEDS: DOCUSATE SODIUM 100MG CAPSULE PO SCH (08:48)
[2021-10-03] MEDS: oxyBUTYnin 5 MG TAB PO SCH (08:49)
[2021-10-03] MEDS: ACETAMINOPHEN 500 MG TAB PO SCH (08:49)
[2021-10-03] MEDS: GABAPENTIN 100 MG CAP PO SCH (08:49)
[2021-10-03] MEDS: SIMETHICONE 80MG CHEW TAB PO SCH (08:49)
[2021-10-03 08:50] VITALS: BP 116/67
[2021-10-03] MEDS: guaiFENesin 200 MG TAB PO SCH (08:50)
[2021-10-03] MEDS: LIDOCAINE 5% (LIDODERM) PATCH TD SCH (08:50)
[2021-10-03] MEDS: ANUSOL HC 25MG SUPP PR SCH (08:50)
[2021-10-03] MEDS: COSOPT OCUMETER PLUS 10ML (DORZOLAMIDE/TIMOLOL) OU SCH (08:51)
[2021-10-03] MEDS: REMEDY PHYTOPLEX Z-GUARD PASTE 113GM TUBE (FROM STOREROOM PRODUCT) TOP SCH (08:51)
[2021-10-03] MEDS ORDERED: RISATAB3 PO (09:44)
[2021-10-03] MEDS ORDERED: MI-A80CH PO (09:44)
[2021-10-03] MEDS ORDERED: AMLO1TAB25 PO (09:44)
[2021-10-03] MEDS ORDERED: AMIT10TA7 PO (09:44)
[2021-10-03] MEDS ORDERED: OXYB5TAB10 PO (09:44)
[2021-10-03] MEDS ORDERED: SUCR1ORA PO (09:44)
[2021-10-03] MEDS ORDERED: GABA-1171 PO (09:44)
[2021-10-03] MEDS ORDERED: ALBU8.5H INH (09:44)
[2021-10-03] MEDS ORDERED: OMEP-218 PO (09:44)
--- NOTE | 2021-10-03 11:54 | IPNPDOC ---
PM&R Progress Note DATE OF SERVICE: Oct 02, 2021 [employer] Consult[employer] Progress Note Subjective: Patient reporting she feels ok and is ready to go home tomorrow with her family. REVIEW OF SYSTEMS: The following is a completed review of systems and has been reviewed. Review of systems otherwise unremarkable. PAIN: Patient self reports no pain EYES: No recent vision changes EARS, NOSE, & THROAT: No throat pain, or dysphagia, or rhinorrhea CARDIOVASCULAR: Denies chest pain or palpitations PULMONARY: Denies shortness of breath GASTROINTESTINAL: +rectal discomfort (chronic) GENITOURINARY: denies dysuria MUSCULOSKELETAL: generalized weakness NEUROLOGICAL:denies paresthesias HEMATOLOGICAL: denies easy bruising SKIN: denies rash PSYCHIATRIC: Unremarkable All other review of systems found to be negative. PHYSICAL EXAMINATION: VITAL SIGNS: Please see below. GENERAL: Pleasant and cooperative. No acute distress. HEENT: PERRL. Extraocular movements intact. Clear conjunctiva CARDIOVASCULAR: Regular rate and rhythm. No murmurs, rubs, or gallops LUNGS: Clear to auscultation bilaterally. No wheezes. No rhonchi ABDOMEN: Soft, nontender, nondistended. Positive bowel sounds. no guarding or rebound tenderness NEUROLOGICAL: Alert and oriented times three. Cranial nerves II through XII grossly intact. Sensation grossly intact] EXTREMITIES:5-\5 strength bilateral upper extremities. 5-\5 strength right lower extremity. 5-/5 strength in left lower extremity. ASSESSMENT:86-year-old F with past medical history of HLD CKD, chronic back pain, gastritis with H pylori who presents status post Hospital acquired PNA with weakness. PLAN: 1. REhab- PT/OT advance mobility and ADLs, strengthen/stretch/maintain ROM all 4 limbs 2. Ortho- patient with chronic low back pain, given recent lumbar Xrays- suspect degree of spinal stenosis- cont to monitor, address pain with lidoderm patching, gabapentin, and tylenol 3. CArdiac- Hx of HTN cont Norvasc, monitor BPs and adjust accordingly 4. Resp- recent HAP cont Cefdinir and Doxycycline (+bacid), xopenex, guaifenesin, monitor for worsening symptoms 5. GI- hx of gastritis due to h pylori cont sucralfate and Prilosec, monitor for C diff given recent abx use -cont zofran prn for nausea which has improved, cont simethicone, s/p bisacodyl suppository for rectal pressure, cont rectal Anusol for discomfort which patient reports his chronic 6. - monitor PVRs (recent UTI)-patient with urinary frequency, reports this is chronic but has improved since starting oxybutynin over the weekend 7. Pain- above 8. DVT ppx- TEDs 9. Dispo- TBD Barriers to d/c and functional status- Patient is mostly Mod-I for mobility and ADLs, has had family training and family is ready ro bring her home and provide support. She is safe from a functional standpoint for d/c to home tomorrow, will discuss with patient and family potentially starting TCA to treat both depression and rectal pain. Allergies Coded Allergies: ciprofloxacin (Verified Adverse Reaction, Intermediate, weak and faint, 01/29/20) Vital Signs Vital Signs Date Time Temp Pulse Resp B/P (MAP) Pulse Ox O2 Delivery O2 Flow Rate FiO2 10/03/21 08:50 75 116/67 10/03/21 06:00 97.8 16 96 Room Air Laboratory Data Labs 24H Laboratory Tests 2 10/03/21 09:25: Coronavirus (COVID-19)(PCR) NEGATIVE Current Medications Current Medications Current Medications Medications (Trade) Dose Ordered Sig/Kari Route PRN Reason Start Time Stop Time Status Last Admin Dose Admin Acetaminophen (Tylenol Tab) 1,000 mg TID PO 09/26/21 21:00 10/03/21 08:49 Al Hydrox/Mg Hydrox/Simethicone (Mylanta) 30 ml Q4HP PRN PO DYSPEPSIA 09/26/21 12:55 Amlodipine Besylate (Norvasc) 10 mg DAILY PO 09/27/21 09:00 10/03/21 08:50 Bisacodyl (Dulcolax Tab) 5 mg DAILY PO 09/27/21 15:25 10/03/21 08:48 Cefdinir (Omnicef) 300 mg DAILY PO 09/27/21 09:00 09/29/21 11:14 DC 09/29/21 09:21 Docusate Sodium (Colace) 100 mg BID PO 09/27/21 21:00 10/03/21 08:48 Dorzolamide/ Timolol (Cosopt Ocumeter Plus) 1 drop BID OU 09/26/21 21:00 10/03/21 08:51 Doxycycline Hyclate (Vibramycin) 100 mg BID PO 09/26/21 21:00 09/29/21 11:15 DC 09/29/21 09:21 Gabapentin (Neurontin) 100 mg TID PO 09/26/21 21:00 10/03/21 08:49 Guaifenesin (Robitussin Tab) 400 mg TID PO 09/26/21 21:00 09/29/21 16:56 Hydrocortisone Acetate (Anusol Hc Supp) 25 mg BID TN 09/29/21 09:00 10/02/21 21:46 Lactobacillus Acidophilus (Bacid) 1 ea WMHS PO 09/26/21 21:00 09/29/21 20:28 Latanoprost (Xalatan 0.005% Op Soln) 1 drop QHS OU 09/26/21 21:00 10/02/21 21:50 Levalbuterol HCl (Xopenex Hfa) 2 puff RQID INH 09/26/21 20:00 Lidocaine (Lidoderm Patch) 2 patch DAILY TD 09/27/21 09:00 10/03/21 08:50 Non-Formulary Medication ( See Comment Field Below ) REMOVE LIDODERM PATCH DAILY@21 XX 09/26/21 21:00 10/02/21 21:50 Omeprazole (PriLOSEC) 20 mg QHS PO 09/26/21 21:00 10/02/21 21:46 Ondansetron HCl (Zofran Odt) 4 mg Q6HP PRN PO NAUSEA OR VOMITING 09/27/21 19:00 09/30/21 12:02 Ondansetron HCl (Zofran) 4 mg Q6HP PRN PO NAUSEA 09/26/21 12:55 09/27/21 13:18 DC Oxybutynin Chloride (Ditropan) 5 mg DAILY PO 10/01/21 09:00 10/03/21 08:49 Senna (Senokot) 1 tab DAILYPRN PRN PO CONSTIPATION 09/27/21 15:25 Simethicone (Mylicon) 80 mg QIDP PRN PO BLOATING 09/26/21 12:55 09/27/21 15:27 DC Simethicone (Mylicon) 80 mg TID PO 09/27/21 16:00 10/03/21 08:49 Sucralfate (Carafate) 1 gm ACHS PO 09/26/21 21:00 10/03/21 06:38 SHIRA GRAY MD Oct 03, 2021 11:54
[2021-10-03 13:53] VITALS: BP 130/58
== END 2021-10-03 14:20 | disposition home health service (06) | DRG 552 ==
LOC: M PM&R 16:45
PROVIDERS: ADMIT Physical Medicine & Rehabilitation; ATTEND Physical Medicine & Rehabilitation
DX: M47.816 Spondylosis without myelopathy or radiculopathy, lumbar region (principal); E46 Unspecified protein-calorie malnutrition; M51.36 Other intervertebral disc degeneration, lumbar region; I12.9 Hypertensive chronic kidney disease with stage 1 through stage 4 chronic kidney disease, or unspecified chronic kidney disease; M48.061 Spinal stenosis, lumbar region without neurogenic claudication; N18.30 Chronic kidney disease, stage 3 unspecified; E78.5 Hyperlipidemia, unspecified; M81.0 Age-related osteoporosis without current pathological fracture; K29.50 Unspecified chronic gastritis without bleeding; K57.90 Diverticulosis of intestine, part unspecified, without perforation or abscess without bleeding; Z74.09 Other reduced mobility; Z74.1 Need for assistance with personal care; Z79.899 Other long term (current) drug therapy; Z88.1 Allergy status to other antibiotic agents; Z88.4 Allergy status to anesthetic agent

== ENCOUNTER 2022-07-02 22:14 | Emergency (ER) | payer MEDICARE ==
[~2022-07-02] VITALS: Ht 152.4 cm; Wt 45.4 kg
[~2022-07-02 22:14] MED LIST changes: +ALEN70TA87 PO; +AMIT10TA7 PO; -FOSA70TA PO; -LISI10TA15 PO; +LISI10TA24 PO; +MI-A80CH PO; +OMEP-173 PO; -OMEP-218 PO; +OXYB5TAB10 PO
[2022-07-02] MEDS ORDERED: DERMABOND TOPICAL SKIN ADHESIVE TOP ONE (23:30)
[2022-07-03 01:11] LABS: BASO # 0.1 10^3/uL (0.0-0.2); BASO % 0.8 % (0.0-1.0); EOS # 0.4 10^3/uL (0.0-0.5); EOS % 4.9 % (0.0-3.0); HEMATOCRIT 29.9 % (36.0-47.0); HEMOGLOBIN 9.4 g/dl (12.0-15.5); LYMPH # 1.5 10^3/uL (1.5-5.0); LYMPH % 19.8 % (24.0-44.0); MEAN CORPUSCULAR HEMOGLOBIN 28.4 pg (27.0-33.0); MEAN CORPUSCULAR HGB CONC 31.4 g/dl (32.0-36.5); MEAN CORPUSCULAR VOLUME 90.3 fl (80.0-96.0); MONO # 0.7 10^3/uL (0.0-0.8); MONO % 8.9 % (2.0-8.0); NEUTROPHILS % 65.2 % (36.0-66.0); PLATELET COUNT, AUTOMATED 326 10^3/uL (150-450); RED BLOOD COUNT 3.31 10^6/uL (4.00-5.40); WHITE BLOOD COUNT 7.7 10^3/uL (4.0-10.0)
[2022-07-03 01:21] LABS: INR 0.97; PROTHROMBIN TIME 13.3 SECONDS (12.7-14.5)
[2022-07-03 01:22] LABS: PARTIAL THROMBOPLASTIN TIME 30.5 SECONDS (25.9-37.0)
[2022-07-03 01:54] LABS: CK-MB VALUE MASS 1.3 NG/ML (<3.6); MB/CK RELATIVE INDEX 1.86 (< OR =4)
[2022-07-03 01:59] LABS: CALCIUM LEVEL 9.5 MG/DL (8.8-10.2); CREATININE FOR GFR 1.29 MG/DL (0.55-1.30); GLOMERULAR FILTRATION RATE 41.8 (>32); POTASSIUM SERUM 4.4 MEQ/L (3.5-5.1); THYROID STIMULATING HORMONE 1.86 uIU/ML (0.358-3.740)
[2022-07-03 02:44] LABS: CK-MB VALUE MASS < 1.0 NG/ML (<3.6); CPK CREATINE PHOSPHOKINASE 66 U/L (26-192); MB/CK RELATIVE INDEX 1.52 (< OR =4)
[2022-07-03 03:31] VITALS: BP 145/80
== END 2022-07-03 03:48 | disposition home or self-care (01) ==
LOC: EDBD 22:14 → M ED 22:14
DX: S01.112A Laceration without foreign body of left eyelid and periocular area, initial encounter (principal); W18.30XA Fall on same level, unspecified, initial encounter; Y92.099 Unspecified place in other non-institutional residence as the place of occurrence of the external cause; Y93.89 Activity, other specified; I10 Essential (primary) hypertension; N18.9 Chronic kidney disease, unspecified; E78.5 Hyperlipidemia, unspecified; M54.9 Dorsalgia, unspecified; Z79.899 Other long term (current) drug therapy; Z88.1 Allergy status to other antibiotic agents

== ENCOUNTER 2022-11-20 15:47 | Inpatient (IN) | payer MEDICARE ==
[~2022-11-20] VITALS: Ht 154.9 cm; Wt 48.1 kg
[2022-11-20] MEDS ORDERED: cefTRIAXone SOD 1 GM in D5W MINI-BAG PLUS 50 ML IV ONE (16:25)
[2022-11-20 16:37] LABS: BASO # 0.1 10^3/uL (0.0-0.2); BASO % 0.4 % (0.0-1.0); EOS # 0.3 10^3/uL (0.0-0.5); EOS % 2.2 % (0.0-3.0); HEMOGLOBIN 8.8 g/dl (12.0-15.5); LYMPH % 14.2 % (24.0-44.0); MEAN CORPUSCULAR HEMOGLOBIN 26.1 pg (27.0-33.0); MEAN CORPUSCULAR HGB CONC 29.3 g/dl (32.0-36.5); MONO # 0.6 10^3/uL (0.0-0.8); MONO % 4.3 % (2.0-8.0); NEUTROPHILS # 10.9 10^3/uL (1.5-8.5); NEUTROPHILS % 78.3 % (36.0-66.0); PLATELET COUNT, AUTOMATED 420 10^3/uL (150-450); RED BLOOD COUNT 3.37 10^6/uL (4.00-5.40); WHITE BLOOD COUNT 13.9 10^3/uL (4.0-10.0)
[2022-11-20 16:55] LABS: THYROID STIMULATING HORMONE 3.759 uIU/ML (0.55-4.78)
[2022-11-20 16:57] LABS: ALBUMIN 3.3 G/DL (3.2-5.2); ALKALINE PHOSPHATASE 91 U/L (46-116); ALT/SGPT 12 U/L (7.0-40); AST/SGOT 42 U/L (<34); BILIRUBIN,DIRECT < 0.1 MG/DL (<0.4); BILIRUBIN,TOTAL 0.3 MG/DL (0.3-1.2); TOTAL PROTEIN 7.1 G/DL (5.7-8.2)
[2022-11-20 17:00] LABS: RSV AMPLIFICATION NEGATIVE (NEGATIVE)
[2022-11-20] MEDS ORDERED: cefTRIAXone SOD 2 GM in D5W MINI-BAG PLUS 50 ML IV ONE (17:10)
[2022-11-20] MEDS ORDERED: NS 500 ML IV ONE (17:20)
[2022-11-20] MEDS: NS 1,000 ML IV SCH ×3 (17:43→21:36)
[2022-11-20 17:53] LABS: IRON (FE) 14 UG/DL (50-170); PERCENT SATURATION 3.5 % (13.2-45.0); TOTAL IRON BINDING CAPACITY 400 UG/DL (250-425)
[2022-11-20 17:56] LABS: FERRITIN 2.6 NG/ML (7.3-270.7)
[2022-11-20 18:08] LABS: CK-MB VALUE MASS 2.4 NG/ML (<3.6); CPK CREATINE PHOSPHOKINASE 181 U/L (34-145); MB/CK RELATIVE INDEX 1.32 (< OR =4)
[2022-11-20] MEDS ORDERED: SODIUM CHLORIDE 0.9% 1000ML IV SCH (20:10)
[2022-11-20] MEDS ORDERED: OMEPRAZOLE 20MG CAP PO SCH (21:00)
[2022-11-20] MEDS ORDERED: AMITRIPTYLINE 10MG TABLET PO SCH (21:00)
[2022-11-20] MEDS ORDERED: oxyBUTYnin 5 MG TAB PO SCH (21:00)
[2022-11-20] MEDS ORDERED: GABA-1171 PO (21:14)
[2022-11-20] MEDS ORDERED: OXYB5TAB10 PO (21:14)
[2022-11-20] MEDS ORDERED: LISI20TA35 PO (21:14)
[2022-11-20] MEDS ORDERED: RISATAB3 PO (21:14)
[2022-11-20] MEDS ORDERED: AMIT10TA7 PO (21:14)
[2022-11-20] MEDS ORDERED: OMEP20.6 PO (21:15)
[2022-11-20] MEDS ORDERED: HOME MED LIST COMPLETE! XX SCH (21:20)
[2022-11-20 22:09] VITALS: BP 160/88
[2022-11-21] VITALS (7 sets, daily range): BP systolic 123–141; BP diastolic 54–105
[2022-11-21] MEDS: COSOPT OCUMETER PLUS 10ML (DORZOLAMIDE/TIMOLOL) OU SCH ×3 (00:32→20:25)
[2022-11-21] MEDS: LACTOBACILLUS ACIDOPHILUS CAP (BACID) PO SCH ×2 (00:32→20:24)
[2022-11-21] MEDS: LATANOPROST 0.005% OPHTH SOLN 2.5 ML OU SCH ×2 (00:32→20:25)
[2022-11-21 05:12] LABS: BASO # 0.1 10^3/uL (0.0-0.2); BASO % 0.3 % (0.0-1.0); EOS % 0.1 % (0.0-3.0); HEMATOCRIT 24.2 % (36.0-47.0); HEMOGLOBIN 7.2 g/dl (12.0-15.5); LYMPH # 1.1 10^3/uL (1.5-5.0); LYMPH % 6.4 % (24.0-44.0); MEAN CORPUSCULAR HEMOGLOBIN 25.8 pg (27.0-33.0); MEAN CORPUSCULAR HGB CONC 29.8 g/dl (32.0-36.5); MEAN CORPUSCULAR VOLUME 86.7 fl (80.0-96.0); MONO # 0.9 10^3/uL (0.0-0.8); MONO % 5.6 % (2.0-8.0); NEUTROPHILS # 14.2 10^3/uL (1.5-8.5); RED BLOOD COUNT 2.79 10^6/uL (4.00-5.40); WHITE BLOOD COUNT 16.4 10^3/uL (4.0-10.0)
[2022-11-21 05:16] LABS: PLATELET COUNT, AUTOMATED 309 10^3/uL (150-450)
[2022-11-21 05:26] LABS: CALCIUM LEVEL 8.4 MG/DL (8.3-10.6); CREATININE FOR GFR 1.39 MG/DL (0.55-1.30); GLOMERULAR FILTRATION RATE 38.4 (>32)
[2022-11-21] MEDS: HEPARIN SOD (PORCINE) 5000UNITS/ML 1ML VIAL/SYRINGE SC SCH ×3 (07:00→23:32)
[2022-11-21] MEDS: NS 1,000 ML IV SCH ×2 (07:00→17:54)
[2022-11-21] MEDS: cefTRIAXone SOD 1 GM in D5W MINI-BAG PLUS 50 ML IV SCH (08:29)
[2022-11-21] MEDS: PANTOPRAZOLE 40MG TAB (PROTONIX) PO SCH ×2 (11:53→20:24)
[2022-11-21] MEDS: RAMELTEON 8 MG TAB (ROZEREM) PO SCH (20:24)
[2022-11-22] VITALS (11 sets, daily range): BP systolic 115–166; BP diastolic 72–98
[2022-11-22] MEDS: NS 1,000 ML IV SCH ×3 (02:54→22:15)
[2022-11-22] MEDS ORDERED: MAALOX 30 ML SUSP *UDC PO PRN (05:00)
[2022-11-22] MEDS ORDERED: ONDANSETRON 4MG ORAL DISINTEGRATING TAB PO PRN (05:00)
[2022-11-22] MEDS: HEPARIN SOD (PORCINE) 5000UNITS/ML 1ML VIAL/SYRINGE SC SCH ×3 (05:06→20:38)
[2022-11-22 06:44] LABS: BASO # 0.1 10^3/uL (0.0-0.2); BASO % 0.4 % (0.0-1.0); EOS # 0.4 10^3/uL (0.0-0.5); EOS % 3.6 % (0.0-3.0); HEMATOCRIT 22.3 % (36.0-47.0); LYMPH # 1.1 10^3/uL (1.5-5.0); LYMPH % 9.1 % (24.0-44.0); MEAN CORPUSCULAR VOLUME 86.4 fl (80.0-96.0); MONO # 0.8 10^3/uL (0.0-0.8); MONO % 6.4 % (2.0-8.0); NEUTROPHILS # 9.8 10^3/uL (1.5-8.5); PLATELET COUNT, AUTOMATED 305 10^3/uL (150-450); RED BLOOD COUNT 2.58 10^6/uL (4.00-5.40); WHITE BLOOD COUNT 12.2 10^3/uL (4.0-10.0)
[2022-11-22 06:51] LABS: HEMOGLOBIN 6.7 g/dl (12.0-15.5)
[2022-11-22 07:17] LABS: CALCIUM LEVEL 8.6 MG/DL (8.3-10.6); CREATININE FOR GFR 0.97 MG/DL (0.55-1.30); GLOMERULAR FILTRATION RATE 58.1 (>32); POTASSIUM SERUM 3.7 MMOL/L (3.5-5.1)
[2022-11-22] MEDS: PANTOPRAZOLE 40MG TAB (PROTONIX) PO SCH ×2 (08:15→20:38)
[2022-11-22] MEDS: ACETAMINOPHEN TAB 650MG DOSE (2X325MG) PO PRN (08:16)
[2022-11-22] MEDS: COSOPT OCUMETER PLUS 10ML (DORZOLAMIDE/TIMOLOL) OU SCH ×2 (09:00→20:38)
[2022-11-22] MEDS: cefTRIAXone SOD 1 GM in D5W MINI-BAG PLUS 50 ML IV SCH (09:00)
[2022-11-22] MEDS: amLODIPine 5 MG TAB PO SCH (09:00)
[2022-11-22] MEDS: RAMELTEON 8 MG TAB (ROZEREM) PO SCH (20:37)
[2022-11-22] MEDS: LACTOBACILLUS ACIDOPHILUS CAP (BACID) PO SCH (20:38)
[2022-11-22] MEDS: LATANOPROST 0.005% OPHTH SOLN 2.5 ML OU SCH (20:38)
[2022-11-23 01:05] VITALS: BP 132/66
[2022-11-23 02:10] LABS: HEMATOCRIT 29.4 % (36.0-47.0)
[2022-11-23 02:14] LABS: HEMOGLOBIN 9.4 g/dl (12.0-15.5)
[2022-11-23] MEDS: HEPARIN SOD (PORCINE) 5000UNITS/ML 1ML VIAL/SYRINGE SC SCH ×3 (05:12→20:58)
[2022-11-23] MEDS: ACETAMINOPHEN TAB 650MG DOSE (2X325MG) PO PRN ×2 (05:13→20:57)
[2022-11-23 06:00] VITALS: BP 159/85
[2022-11-23 06:12] LABS: BASO # 0.1 10^3/uL (0.0-0.2); BASO % 0.4 % (0.0-1.0); EOS # 0.2 10^3/uL (0.0-0.5); EOS % 1.7 % (0.0-3.0); HEMATOCRIT 29.5 % (36.0-47.0); HEMOGLOBIN 9.8 g/dl (12.0-15.5); LYMPH # 1.4 10^3/uL (1.5-5.0); LYMPH % 12.4 % (24.0-44.0); MEAN CORPUSCULAR HGB CONC 33.2 g/dl (32.0-36.5); MEAN CORPUSCULAR VOLUME 84.3 fl (80.0-96.0); MONO # 1.2 10^3/uL (0.0-0.8); MONO % 10.1 % (2.0-8.0); NEUTROPHILS # 8.7 10^3/uL (1.5-8.5); NEUTROPHILS % 74.9 % (36.0-66.0); PLATELET COUNT, AUTOMATED 263 10^3/uL (150-450); WHITE BLOOD COUNT 11.6 10^3/uL (4.0-10.0)
[2022-11-23 06:38] LABS: BLOOD UREA NITROGEN 19 MG/DL (9-23); CARBON DIOXIDE LEVEL 23 MMOL/L (20-31); CHLORIDE LEVEL 112 MMOL/L (98-107); CREATININE FOR GFR 0.84 MG/DL (0.55-1.30); GLOMERULAR FILTRATION RATE > 60.0 (>32); GLUCOSE, FASTING 94 MG/DL (74-106); POTASSIUM SERUM 3.9 MMOL/L (3.5-5.1); SODIUM LEVEL 142 MMOL/L (136-145)
[2022-11-23] MEDS: NS 1,000 ML IV SCH ×2 (07:54→18:15)
[2022-11-23] MEDS: amLODIPine 5 MG TAB PO SCH (07:55)
[2022-11-23] MEDS: PANTOPRAZOLE 40MG TAB (PROTONIX) PO SCH ×2 (07:55→20:57)
[2022-11-23] MEDS: cefTRIAXone SOD 1 GM in D5W MINI-BAG PLUS 50 ML IV SCH (07:57)
[2022-11-23] MEDS: COSOPT OCUMETER PLUS 10ML (DORZOLAMIDE/TIMOLOL) OU SCH ×2 (07:58→20:58)
[2022-11-23 08:00] VITALS: BP 150/80
[2022-11-23] MEDS ORDERED: ISOVUE-370 76% 100ML VIAL As Ordered ONE (09:37)
[2022-11-23] MEDS ORDERED: FUROSEMIDE 40MG/4ML VIAL IV ONE (14:00)
[2022-11-23 14:45] VITALS: BP 156/85
[2022-11-23] MEDS: GABAPENTIN 100 MG CAP PO SCH (20:56)
[2022-11-23] MEDS: RAMELTEON 8 MG TAB (ROZEREM) PO SCH (20:56)
[2022-11-23] MEDS: LACTOBACILLUS ACIDOPHILUS CAP (BACID) PO SCH (20:57)
[2022-11-23] MEDS: LATANOPROST 0.005% OPHTH SOLN 2.5 ML OU SCH (20:58)
[2022-11-23 22:00] VITALS: BP 152/88
[2022-11-24] MEDS: HEPARIN SOD (PORCINE) 5000UNITS/ML 1ML VIAL/SYRINGE SC SCH (05:41)
[2022-11-24 06:00] VITALS: BP 148/82
[2022-11-24 06:45] LABS: BASO # 0.1 10^3/uL (0.0-0.2); BASO % 0.7 % (0.0-1.0); EOS # 0.5 10^3/uL (0.0-0.5); EOS % 4.8 % (0.0-3.0); HEMATOCRIT 32.5 % (36.0-47.0); HEMOGLOBIN 10.6 g/dl (12.0-15.5); LYMPH # 1.9 10^3/uL (1.5-5.0); LYMPH % 19.1 % (24.0-44.0); MEAN CORPUSCULAR HEMOGLOBIN 27.3 pg (27.0-33.0); MEAN CORPUSCULAR HGB CONC 32.6 g/dl (32.0-36.5); MEAN CORPUSCULAR VOLUME 83.8 fl (80.0-96.0); MONO # 1.1 10^3/uL (0.0-0.8); MONO % 10.9 % (2.0-8.0); NEUTROPHILS # 6.2 10^3/uL (1.5-8.5); NEUTROPHILS % 64.1 % (36.0-66.0); PLATELET COUNT, AUTOMATED 258 10^3/uL (150-450); RED BLOOD COUNT 3.88 10^6/uL (4.00-5.40); WHITE BLOOD COUNT 9.7 10^3/uL (4.0-10.0)
[2022-11-24] MEDS ORDERED: FUROSEMIDE 40MG/4ML VIAL IV ONE (07:05)
[2022-11-24 07:08] LABS: CALCIUM LEVEL 8.4 MG/DL (8.3-10.6); CREATININE FOR GFR 1.03 MG/DL (0.55-1.30); GLOMERULAR FILTRATION RATE 54.2 (>32); POTASSIUM SERUM 3.2 MMOL/L (3.5-5.1)
[2022-11-24] MEDS ORDERED: POTASSIUM CHLORIDE 10MEQ SR TABLET PO ONE (08:10)
[2022-11-24 08:54] VITALS: BP 148/82
[2022-11-24] MEDS: COSOPT OCUMETER PLUS 10ML (DORZOLAMIDE/TIMOLOL) OU SCH (08:54)
[2022-11-24] MEDS: amLODIPine 5 MG TAB PO SCH (08:54)
[2022-11-24] MEDS: cefTRIAXone SOD 1 GM in D5W MINI-BAG PLUS 50 ML IV SCH (08:54)
[2022-11-24] MEDS: PANTOPRAZOLE 40MG TAB (PROTONIX) PO SCH (08:54)
[2022-11-24] MEDS: GABAPENTIN 100 MG CAP PO SCH (08:54)
[2022-11-24] MEDS ORDERED: AMLO1TAB25 PO (09:40)
[2022-11-24] MEDS ORDERED: CEFD300C41 PO (09:40)
[2022-11-24] MEDS ORDERED: MYRB25TA PO (09:40)
[2022-11-24] MEDS ORDERED: ROZE8TAB16 PO (09:44)
[2022-11-24] MEDS ORDERED: K-TA10TA2 PO (12:40)
[2022-11-24] MEDS ORDERED: LASI20TA3 PO (12:40)
== END 2022-11-24 14:00 | disposition home or self-care (01) | DRG 871 ==
LOC: EDBD 15:47 → M ED 15:47 → M ED INP 19:58 → M PCU 21:56 → M MS5PR 11-21 23:59
PROVIDERS: ADMIT Family Medicine; ATTEND Internal Medicine
PROC: 30233N1 Transfusion of Nonautologous Red Blood Cells into Peripheral Vein, Percutaneous Approach (ICD-10-PCS; principal; 2022-11-22)
DX: A41.9 Sepsis, unspecified organism (principal); G93.41 Metabolic encephalopathy; N39.0 Urinary tract infection, site not specified; N17.9 Acute kidney failure, unspecified; E46 Unspecified protein-calorie malnutrition; K21.9 Gastro-esophageal reflux disease without esophagitis; E87.71 Transfusion associated circulatory overload; N18.32 Chronic kidney disease, stage 3b; E78.5 Hyperlipidemia, unspecified; R19.7 Diarrhea, unspecified; I12.9 Hypertensive chronic kidney disease with stage 1 through stage 4 chronic kidney disease, or unspecified chronic kidney disease; M81.0 Age-related osteoporosis without current pathological fracture; M54.9 Dorsalgia, unspecified; G89.29 Other chronic pain; E78.00 Pure hypercholesterolemia, unspecified; K29.50 Unspecified chronic gastritis without bleeding; Z90.49 Acquired absence of other specified parts of digestive tract; D50.9 Iron deficiency anemia, unspecified; B95.8 Unspecified staphylococcus as the cause of diseases classified elsewhere; Z79.899 Other long term (current) drug therapy; Z88.1 Allergy status to other antibiotic agents; Z20.822 Contact with and (suspected) exposure to COVID-19; G47.00 Insomnia, unspecified; R32 Unspecified urinary incontinence; Z66 Do not resuscitate